=== PATIENT | male | born 1930 | race Caucasian/White ===

== ENCOUNTER 2017-11-11 20:19 | Emergency (ER) | payer MEDICARE, MEDICAID | END 2017-11-11 22:29 | disposition home or self-care (01) | LOC: M ED 20:19 | DX: S70.01XA Contusion of right hip, initial encounter (principal); W07.XXXA Fall from chair, initial encounter; Y92.129 Unspecified place in nursing home as the place of occurrence of the external cause; I10 Essential (primary) hypertension; K21.9 Gastro-esophageal reflux disease without esophagitis; E55.9 Vitamin D deficiency, unspecified; M19.90 Unspecified osteoarthritis, unspecified site; Z79.899 Other long term (current) drug therapy; Z79.82 Long term (current) use of aspirin; Z79.890 Hormone replacement therapy | CPT/HCPCS: 99284 ==

== ENCOUNTER 2017-11-13 12:28 | Emergency (ER) | payer MEDICARE, MEDICAID ==
[2017-11-13 13:53] LABS: BASO % 0.4 % (0.0-1.0); EOS # 0.4 10^3/uL (0.0-0.50); HEMATOCRIT 39.4 % (42.0-52.0); HEMOGLOBIN 13.4 g/dl (14.0-18.0); IMMATURE GRANULOCYTE % 0.4 % (0-0); LYMPH # 1.7 10^3/uL (1.5-4.5); LYMPH % 21.5 % (24.0-44.0); MEAN CORPUSCULAR HEMOGLOBIN 32.5 pg (27.0-33.0); MEAN CORPUSCULAR VOLUME 95.6 fl (80.0-96.0); MONO # 1.2 10^3/uL (0.0-0.8); MONO % 14.6 % (0.0-5.0); NEUTROPHILS # 4.7 10^3/uL (1.8-7.7); NEUTROPHILS % 58.1 % (36.0-66.0); PLATELET COUNT, AUTOMATED 164 10^3/uL (150-450); RED BLOOD COUNT 4.12 10^6/uL (4.30-6.10); RED CELL DISTRIBUTION WIDTH 14.2 % (11.5-14.5)
[2017-11-13 14:00] LABS: KETONE, URINE AUTO RFX NEGATIVE (NEGATIVE); LEUKOCYTE ESTERASE UR AUTO RFX NEGATIVE (NEGATIVE); MUCUS, URINE RFX SMALL (NEGATIVE); NITRITE, URINE AUTO RFX NEGATIVE (NEGATIVE); RBC, URINE AUTO RFX 0 /HPF (0-3); SPECIFIC GRAVITY UR AUTO RFX 1.018 (1.002-1.035); SQUAM EPITHELIAL CELL UR AURFX 1 /HPF (0-6); WBC, URINE AUTO RFX 2 /HPF (0-3)
[2017-11-13 14:19] LABS: LACTIC ACID SEPSIS PROTOCOL 1.8 MMOL/L (0.4-2.0)
[2017-11-13 14:21] LABS: ALBUMIN 3.5 GM/DL (3.2-5.2); ALKALINE PHOSPHATASE 159 U/L (45-117); ALT/SGPT 24 U/L (12-78); ANION GAP 7 MEQ/L (8-16); AST/SGOT 19 U/L (7-37); BILIRUBIN,DIRECT 0.1 MG/DL (0.0-0.2); BILIRUBIN,TOTAL 0.4 MG/DL (0.2-1.0); BLOOD UREA NITROGEN 12 MG/DL (7-18); CALCIUM LEVEL 8.3 MG/DL (8.8-10.2); CARBON DIOXIDE LEVEL 30 MEQ/L (21-32); CHLORIDE LEVEL 105 MEQ/L (98-107); CK-MB VALUE MASS 2.1 NG/ML (0.0-3.6); CPK CREATINE PHOSPHOKINASE 72 U/L (39-308); CREATININE FOR GFR 1.04 MG/DL (0.70-1.30); GLOMERULAR FILTRATION RATE > 60.0 (>35); GLUCOSE, FASTING 101 MG/DL (70-100); LIPASE 99 U/L (73-393); MB/CK RELATIVE INDEX 2.91 (< OR =4); POTASSIUM SERUM 3.6 MEQ/L (3.5-5.1); SODIUM LEVEL 142 MEQ/L (136-145); TOTAL PROTEIN 7.4 GM/DL (6.4-8.2); TROPONIN I < 0.02 NG/ML (< 0.10)
== END 2017-11-13 15:14 | disposition home or self-care (01) ==
LOC: M ED 12:28
DX: K29.50 Unspecified chronic gastritis without bleeding (principal); I44.7 Left bundle-branch block, unspecified; I10 Essential (primary) hypertension; E03.9 Hypothyroidism, unspecified; K21.9 Gastro-esophageal reflux disease without esophagitis; G47.30 Sleep apnea, unspecified; F03.90 Unspecified dementia, unspecified severity, without behavioral disturbance, psychotic disturbance, mood disturbance, and anxiety; Z79.899 Other long term (current) drug therapy; Z98.2 Presence of cerebrospinal fluid drainage device; Z79.890 Hormone replacement therapy
CPT/HCPCS: 74021

== ENCOUNTER → 2017-11-29 | Outpatient (CLI) | payer MEDICARE, MEDICAID ==
[~2017-11-29] MED LIST: GASTROGRAFIN SOLUTION 30ML (Q9963) As Ordered; ISOVUE-370 76% 100ML VIAL (Q9967) As Ordered
== END ==
LOC: M RAD 13:10
DX: I71.4 Abdominal aortic aneurysm, without rupture (principal); K57.90 Diverticulosis of intestine, part unspecified, without perforation or abscess without bleeding; R93.3 Abnormal findings on diagnostic imaging of other parts of digestive tract
CPT/HCPCS: Q9963

== ENCOUNTER 2017-12-18 20:05 | Emergency (ER) | payer MEDICARE, MEDICAID ==
[2017-12-18] MEDS: NS 500 ML IV (21:00)
[2017-12-18 21:30] LABS: BASO % 0.1 % (0.0-1.0); HEMATOCRIT 40.8 % (42.0-52.0); IMMATURE GRANULOCYTE % 0.6 % (0-3.0); LYMPH # 0.4 10^3/uL (1.5-4.5); LYMPH % 2.6 % (24.0-44.0); MEAN CORPUSCULAR HEMOGLOBIN 32.6 pg (27.0-33.0); MEAN CORPUSCULAR HGB CONC 34.3 g/dl (32.0-36.5); MEAN CORPUSCULAR VOLUME 94.9 fl (80.0-96.0); MONO # 1.9 10^3/uL (0.0-0.8); MONO % 11.6 % (0.0-5.0); NEUTROPHILS # 13.9 10^3/uL (1.8-7.7); NEUTROPHILS % 85.1 % (36.0-66.0); PLATELET COUNT, AUTOMATED 142 10^3/uL (150-450); RED CELL DISTRIBUTION WIDTH 14.5 % (11.5-14.5); WHITE BLOOD COUNT 16.3 10^3/uL (4.0-10.0)
[2017-12-18 21:54] LABS: ALBUMIN 3.4 GM/DL (3.2-5.2); ALBUMIN/GLOBULIN RATIO 0.87 (1.00-1.93); ALKALINE PHOSPHATASE 117 U/L (45-117); ALT/SGPT 23 U/L (12-78); ANION GAP 11 MEQ/L (8-16); AST/SGOT 24 U/L (7-37); BILIRUBIN,DIRECT 0.2 MG/DL (0.0-0.2); BILIRUBIN,TOTAL 0.5 MG/DL (0.2-1.0); BLOOD UREA NITROGEN 22 MG/DL (7-18); CARBON DIOXIDE LEVEL 24 MEQ/L (21-32); CHLORIDE LEVEL 105 MEQ/L (98-107); CPK CREATINE PHOSPHOKINASE 199 U/L (39-308); GLOMERULAR FILTRATION RATE 55.6 (>35); GLUCOSE, FASTING 157 MG/DL (70-100); LIPASE 67 U/L (73-393); SODIUM LEVEL 140 MEQ/L (136-145); TOTAL PROTEIN 7.3 GM/DL (6.4-8.2); TROPONIN I 0.04 NG/ML (< 0.10)
[2017-12-18 21:55] LABS: CK-MB VALUE MASS 2.4 NG/ML (0.0-3.6)
[2017-12-18] MEDS: POTASSIUM CHLORIDE 10 MEQ SR TABLET PO (22:15)
[2017-12-18] MEDS: GASTROGRAFIN SOLUTION 30ML PO ×2 (22:45→23:15)
[2017-12-18] MEDS ORDERED: ISOVUE-370 76% 100ML VIAL (Q9967) As Ordered (23:59)
[2017-12-19 01:12] LABS: KETONE, URINE AUTO RFX TRACE mg/dL (NEGATIVE); LEUKOCYTE ESTERASE UR AUTO RFX NEGATIVE (NEGATIVE); MUCUS, URINE RFX SMALL (NEGATIVE); NITRITE, URINE AUTO RFX NEGATIVE (NEGATIVE); RBC, URINE AUTO RFX 0 /HPF (0-3); SPECIFIC GRAVITY UR AUTO RFX 1.029 (1.002-1.035); SQUAM EPITHELIAL CELL UR AURFX 0 /HPF (0-6); WBC, URINE AUTO RFX 1 /HPF (0-3)
[2017-12-19 01:21] LABS: LACTIC ACID SEPSIS PROTOCOL 2.6 MMOL/L (0.4-2.0)
== END 2017-12-19 03:49 | disposition home or self-care (01) ==
LOC: M ED 12-19 03:49
DX: R19.7 Diarrhea, unspecified (principal); R29.6 Repeated falls; I10 Essential (primary) hypertension; E78.5 Hyperlipidemia, unspecified; E07.9 Disorder of thyroid, unspecified; K21.9 Gastro-esophageal reflux disease without esophagitis; M19.90 Unspecified osteoarthritis, unspecified site; R13.10 Dysphagia, unspecified; F03.90 Unspecified dementia, unspecified severity, without behavioral disturbance, psychotic disturbance, mood disturbance, and anxiety; E53.8 Deficiency of other specified B group vitamins; Z79.899 Other long term (current) drug therapy; Z79.82 Long term (current) use of aspirin
CPT/HCPCS: Q9963

== ENCOUNTER → 2018-04-20 | Outpatient (REF) | payer MEDICARE, MEDICAID ==
[2018-04-20 15:14] LABS: APPEARANCE, URINE CLEAR (CLEAR); BACTERIA, URINE AUTO 1+ (NEGATIVE); BILIRUBIN, URINE AUTO NEGATIVE (NEGATIVE); BLOOD, URINE BLOOD NEGATIVE (NEGATIVE); COLOR, URINE YELLOW (YELLOW); GLUCOSE, URINE (UA) AUTO NEGATIVE (NEGATIVE); KETONE, URINE AUTO NEGATIVE (NEGATIVE); LEUKOCYTE ESTERASE, URINE AUTO NEGATIVE (NEGATIVE); MUCUS, URINE SMALL (NEGATIVE); NITRITE, URINE AUTO NEGATIVE (NEGATIVE); PROTEIN, URINE AUTO NEGATIVE (NEGATIVE); RBC, URINE AUTO 0 /HPF (0-3); SPECIFIC GRAVITY URINE AUTO 1.017 (1.002-1.035); SQUAMOUS EPITHELIAL CELL UR AU 0 /HPF (0-6); UROBILINOGEN, URINE AUTO 0.2 mg/dL (0.0-2.0); WBC, URINE AUTO 1 /HPF (0-3)
== END ==
LOC: M LAB 15:03
DX: R41.82 Altered mental status, unspecified (principal)
CPT/HCPCS: 81001

== ENCOUNTER 2018-11-13 10:35 | Inpatient (IN) | payer MEDICARE ==
[~2018-11-13] VITALS: Ht 165.1 cm; Wt 79.1 kg
[~2018-11-13 10:35] MED LIST changes: +ALUMSUS2 PO; +ASPI81TA24 PO; +COLA100C5 PO; +FAMO40TA3 PO; +FOLI1TAB11 PO; -GASTROGRAFIN SOLUTION 30ML (Q9963) As Ordered; +GUAI100S29 PO; +HYDR25TAB PO; -ISOVUE-370 76% 100ML VIAL (Q9967) As Ordered; +KLOR10TA76 PO; +LEVO75TA34 PO; +MILK120011 PO; +MIRA33504 PO; +PEPT262S PO; +PROT1TAB2 PO; +SENN1TAB10 PO; +SUCR1TAB56 PO; +TYLE325T5 PO; +VITA2000 PO; +VITA200015 PO
[2018-11-13 12:09] LABS: BASO # 0.1 10^3/uL (0.0-0.2); BASO % 0.3 % (0.0-1.0); HEMATOCRIT 41.1 % (42.0-52.0); HEMOGLOBIN 14.1 g/dl (13.5-17.5); LYMPH # 0.9 10^3/uL (1.5-4.5); LYMPH % 3.5 % (24.0-44.0); MEAN CORPUSCULAR HEMOGLOBIN 33.1 pg (27.0-33.0); MEAN CORPUSCULAR HGB CONC 34.3 g/dl (32.0-36.5); MEAN CORPUSCULAR VOLUME 96.5 fl (80.0-96.0); MONO % 8.5 % (0.0-5.0); NEUTROPHILS # 22.2 10^3/uL (1.8-7.7); NEUTROPHILS % 86.6 % (36.0-66.0); PLATELET COUNT, AUTOMATED 165 10^3/uL (150-450); RED BLOOD COUNT 4.26 10^6/uL (4.30-6.10); WHITE BLOOD COUNT 25.7 10^3/uL (4.0-10.0)
[2018-11-13 12:17] LABS: ALBUMIN 3.3 GM/DL (3.2-5.2); BILIRUBIN,DIRECT 0.2 MG/DL (0.0-0.2); BILIRUBIN,TOTAL 0.7 MG/DL (0.2-1.0); CALCIUM LEVEL 8.7 MG/DL (8.8-10.2); CREATININE FOR GFR 1.39 MG/DL (0.70-1.30); GLOMERULAR FILTRATION RATE 51.3 (>35); POTASSIUM SERUM 3.4 MEQ/L (3.5-5.1)
[2018-11-13 12:57] LABS: MONO # 2.2 10^3/uL (0.0-0.8)
[2018-11-13] MEDS: GASTROGRAFIN SOLUTION 30ML PO SCH ×2 (13:00→13:28)
[2018-11-13] MEDS ORDERED: ISOVUE-370 76% 100ML VIAL (Q9967) As Ordered ONE (13:38)
--- NOTE | 2018-11-13 15:19 | REP ---
CT abdomen and pelvis with IV and oral contrast: History: Periumbilical hernia. Rule out strangulation. Comparison CT study December 19, 2017. CT contrast dose: 100 ml of intravenous Isovue 370. CT findings: Preliminary digital site coordinator radiograph demonstrates an unremarkable bowel gas pattern. There is an infiltrate in the right lower lobe and a few patchy increased markings are seen at the top of the imaging field of view in the right middle lobe. This represents a change from the comparison CT study and is compatible with right lower lobe pneumonia. There is discoid atelectasis in the left lower lobe. No pleural effusion is seen. There is a tiny cyst in the left lobe of the liver. which is unchanged. A small sliding-type hiatal hernia is seen. Normal adrenal glands are noted bilaterally. No splenic or significant focal liver lesion is seen. There is no abnormality in the gallbladder. Pancreas is unremarkable. The kidneys enhance symmetrically and are morphologically intact. There is an infrarenal abdominal aortic aneurysm measuring 3.3 cm in greatest diameter. There is marked left colonic diverticulosis. There is no CT evidence of diverticulitis. There are bilateral inguinal hernias transmitting abdominal fat, left larger than right. There is a ventral hernia in the periumbilical anterior abdominal wall transmitting abdominal fat as well. There are several small defects involved with this hernia. There is no evidence of inflammation to suggest strangulation. No bowel involvement is seen. The hernia is essentially unchanged from December 19, 2017. Prostate, seminal vesicles and urinary bladder are unremarkable. Impression: 1. Right lower lobe infiltrate consistent with pneumonia. 2. Stable ventral and bilateral inguinal hernias transmitting abdominal fat. 3. Advanced left colonic diverticulosis without CT evidence of diverticulitis. 4. 3.3 cm infrarenal abdominal aortic aneurysm, unchanged. 5. Small sliding hiatal hernia. Electronically Signed by Ashok Espino MD 11/13/2018 10:28 P
[2018-11-13] MEDS ORDERED: cefTRIAXone SOD 2 GM in D5W MINI-BAG PLUS 50 ML IV ONE (15:30)
[2018-11-13] MEDS ORDERED: AZITHROMYCIN INJ 500 MG, VIAL MATE ADAPTER 1 EACH in D5W 250 ML IV ONE (15:30)
--- NOTE | 2018-11-13 15:48 | REP ---
Chest one-view HISTORY: Right lower lobe pneumonia Comparison: None Patchy density is present in the right lower lobe consistent with an infiltrate. The left lung is clear. The heart is normal in size. The pulmonary vasculature is normal in appearance. Impression: Right lower lobe infiltrate. Electronically Signed by Zach Marcos MD 11/13/2018 03:40 P
[2018-11-13] MEDS ORDERED: SIME80TA PO (16:42)
[2018-11-13] MEDS ORDERED: ONDANSETRON 4 MG TAB (S0181) PO PRN (19:30)
[2018-11-13] MEDS ORDERED: BISACODYL 5 MG TAB PO PRN (19:30)
[2018-11-13] MEDS ORDERED: PERCOCET 5MG/325MG TAB PO PRN ×2 (19:30)
[2018-11-13] MEDS: SENOKOT S TAB PO SCH (21:00)
[2018-11-13] MEDS ORDERED: MOM 30ML SUSPENSION UDC PO PRN (21:45)
[2018-11-13] MEDS ORDERED: SIMETHICONE 80 MG CHEW TAB PO PRN (21:45)
--- NOTE | 2018-11-13 21:50 | HPEPDOC ---
[facility] Medical History & Physical Date of Admission Nov 13, 2018 History and Physical CHIEF COMPLAINT: [sob and AMS ] HISTORY OF PRESENT ILLNESS: This is an 88 yo male with no significant pmhx per sister at bedside. Patient was very uncooperative , cursing everyone and saying he was going to leave because nothing was wrong with him. He did not give any hx. Limited hx was taken from his sister at bedside. Per sister he was sent in from [facility] for weakness, difficulty ambulating and low grade fever 99.6. He is slower than usual and there was concern that something was wrong so he was sent in for evaluation. Patient also has been having runny nose , cold symptoms. REVIEW OF SYSTEMS: All 14 points ROS is negative except what's stated in HPI PHYSICAL EXAMINATION: GEN: no acute distress HEENT : no lymphadenopathy, PERRLA , no oropharyngeal erythema or exudates CVS: Normal S1/s2, no murmurs, rubs or gallops, RESP: b/l wheezes, but no crackles, or rhonchi Abd: soft, nontender, nondistended, + BS MSK: refused to move his extremtiies and forcefully kept them in one position, but per family, he usually moves them all without any difficulty Integumentary: no rash or bruises Neuro: no focal deficit psych: uncooperative PAST SURGICAL HISTORY: none PMHX none SOCIAL HISTORY: Resides in: [[facility]] Tobacco use:[n] ETOH: [n] Illicit drug use: n Tattoos done unprofessionally: [n]. IV drug use: [n] FAMILY HISTORY: multiple siblings with malignancy - family unsure of the type ALLERGIES: Please see below. HOME MEDICATIONS: Please see below. LABORATORY DATA: See below. IMAGING: [ cxr - Impression: Right lower lobe infiltrate. CT abd and pelvis 1. Right lower lobe infiltrate consistent with pneumonia. 2. Stable ventral and bilateral inguinal hernias transmitting abdominal fat. 3. Advanced left colonic diverticulosis without CT evidence of diverticulitis. 4. 3.3 cm infrarenal abdominal aortic aneurysm, unchanged. 5. Small sliding hiatal hernia. MICROBIOLOGY: Please see below. ASSESSMENT: RLL PNA PLAN: ceftriaxone and azithromycin f/u resp panel f/ui sputum gs and cx f/u bacterial ag steroid 40mg niv q8h duonebs q4h resume home meds dvt ppx DNR/DNI Vital Signs Vital Signs Date Time Temp Pulse Resp B/P (MAP) Pulse Ox O2 Delivery O2 Flow Rate FiO2 11/13/18 20:00 97.8 78 22 142/73 (96) 94 Nasal Cannula 2.0 Laboratory Data Labs 24H Laboratory Tests 2 11/13/18 11:06: Immature Granulocyte % (Auto) 1.1, White Blood Count 25.7H, Red Blood Count 4.26L, Hemoglobin 14.1, Hematocrit 41.1L, Mean Corpuscular Volume 96.5H, Mean Corpuscular Hemoglobin 33.1H, Mean Corpuscular Hemoglobin Concent 34.3, Red Cell Distribution Width 14.6H, Platelet Count 165, Neutrophils (%) (Auto) 86.6H, Lymphocytes (%) (Auto) 3.5L, Monocytes (%) (Auto) 8.5H, Eosinophils (%) (Auto) 0.0, Basophils (%) (Auto) 0.3, Neutrophils # (Auto) 22.2H, Lymphocytes # (Auto) 0.9L, Monocytes # (Auto) 2.2H, Eosinophils # (Auto) 0.0, Basophils # (Auto) 0.1, Nucleated Red Blood Cells % (auto) 0.0, Anion Gap 8, Glomerular Filtration Rate 51.3, Lactic Acid Level 3.2*H, Calcium Level 8.7L, Aspartate Amino Transf (AST/SGOT) 15, Alanine Aminotransferase (ALT/SGPT) 21, Alkaline Phosphatase 116, Total Bilirubin 0.7, Direct Bilirubin 0.2, Total Protein 7.0, Albumin 3.3, Albumin/Globulin Ratio 0.89L, Lipase 63L 11/13/18 17:41: Lactic Acid Followup at 4 Hours 2.4*H CBC/BMP Laboratory Tests 11/13/18 11:06 Red Blood Count 4.26 L, Mean Corpuscular Volume 96.5 H, Mean Corpuscular Hemoglobin 33.1 H, Mean Corpuscular Hemoglobin Concent 34.3, Red Cell Distribution Width 14.6 H, Neutrophils (%) (Auto) 86.6 H, Lymphocytes (%) (Auto) 3.5 L, Monocytes (%) (Auto) 8.5 H, Eosinophils (%) (Auto) 0.0, Basophils (%) (Auto) 0.3, Neutrophils # (Auto) 22.2 H, Lymphocytes # (Auto) 0.9 L, Monocytes # (Auto) 2.2 H, Eosinophils # (Auto) 0.0, Basophils # (Auto) 0.1 Home Medications Scheduled Acetaminophen (Tylenol) 325 Mg Tab, 325 MG PO BID Aspirin (Aspirin EC) 81 Mg Tab, 81 MG PO DAILY Cholecalciferol (Vitamin D3) 2,000 Unit Cap, 2,000 UNIT PO DAILY Docusate Sodium (Colace) 100 Mg Cap, 100 MG PO BID Famotidine (Famotidine) 40 Mg Tab, 40 MG PO QHS Folic Acid (Folic Acid) 1 Mg Tab, 1 MG PO DAILY Hydrochlorothiazide (Hydrochlorothiazide) 25 Mg Tab, 25 MG PO DAILY Levothyroxine Sodium (Levoxyl) 75 Mcg Tab, 75 MCG PO DAILY Pantoprazole Sodium Sesquihydr (Protonix) 40 Mg Tab, 40 MG PO BID TAKES AT 1100 & 1600 Potassium Chloride (Klor-Con M10) 10 Meq Tabcr, 10 MEQ PO DAILY Senna (Senna Lax) 8.6 Mg Tab, 2 TAB PO QHS Sucralfate (Sucralfate) 1 Gm Tab, 1 GM PO QID Scheduled PRN (Aluminum/Magnesium/Simeth 200-200-20 mg/5Ml) 1 Rosa Rosa, 30 ML PO Q4H PRN for INDIGESTION Acetaminophen (Tylenol) 325 Mg Tab, 325 MG PO DAILY PRN for PAIN Bismuth Subsalicylate (Pepto-Bismol) 262 Mg/15 Ml Rosa, 30 ML PO Q4H PRN for INDIGESTION Guaifenesin/Dextromethorphan (Guaifenesin/Dextromethorp 100-10 mg/5Ml) 1 Syp Syp, 5 ML PO QID PRN for COUGH Milk Of Magnesia (Milk of Magnesia) 1,200 Mg/15 Ml Rosa, 30 ML PO Q4H PRN for C ONSTIPATION Polyethylene Glycol (Miralax) 1 Pow Pow, 17 GM PO DAILY PRN for CONSTIPATION Simethicone (Simethicone) 80 Mg Chew, 80 MG PO Q6H PRN for GAS PAIN Allergies Coded Allergies: No Known Allergies (Unverified , 11/13/17) CHIARA PEREZ MD Nov 13, 2018 21:50
[2018-11-13] MEDS: SENNA 8.6 MG TAB (SENOKOT) PO SCH (22:09)
[2018-11-13] MEDS: ACETAMINOPHEN TAB 650MG DOSE (2X325MG) PO PRN (22:09)
[2018-11-13] MEDS: guaiFENesin DM LIQ 10ML UD PO PRN (22:09)
[2018-11-13] MEDS: HEPARIN SOD (PORCINE) 5000 UNITS/ML VIAL SC SCH (22:10)
[2018-11-13] MEDS: methylPREDNISolone INJ 40 MG/1 ML VIAL (J2920) IV SCH (22:10)
[2018-11-14] MEDS: IPRATROPIUM 0.5MG/ALBUTEROL 2.5MG INH SOL UD 3ML (DUONEB)(J7620) NEB SCH ×7 (04:00→23:30)
[2018-11-14] MEDS: LEVOTHYROXINE 75MCG TABLET (0.075MG) PO SCH (06:10)
[2018-11-14] MEDS: methylPREDNISolone INJ 40 MG/1 ML VIAL (J2920) IV SCH ×3 (06:10→19:52)
[2018-11-14] MEDS: HEPARIN SOD (PORCINE) 5000 UNITS/ML VIAL SC SCH ×3 (06:10→19:52)
[2018-11-14 07:57] LABS: BASO % 0.2 % (0.0-1.0); HEMATOCRIT 39.6 % (42.0-52.0); HEMOGLOBIN 13.6 g/dl (13.5-17.5); LYMPH # 0.9 10^3/uL (1.5-4.5); LYMPH % 5.7 % (24.0-44.0); MEAN CORPUSCULAR HGB CONC 34.3 g/dl (32.0-36.5); MEAN CORPUSCULAR VOLUME 96.1 fl (80.0-96.0); MONO # 0.2 10^3/uL (0.0-0.8); MONO % 1.5 % (0.0-5.0); NEUTROPHILS # 14.6 10^3/uL (1.8-7.7); NEUTROPHILS % 91.8 % (36.0-66.0); PLATELET COUNT, AUTOMATED 154 10^3/uL (150-450); RED BLOOD COUNT 4.12 10^6/uL (4.30-6.10); WHITE BLOOD COUNT 15.9 10^3/uL (4.0-10.0)
[2018-11-14 08:29] LABS: BLOOD UREA NITROGEN 14 MG/DL (7-18); CALCIUM LEVEL 8.9 MG/DL (8.8-10.2); CARBON DIOXIDE LEVEL 28 MEQ/L (21-32); CHLORIDE LEVEL 101 MEQ/L (98-107); GLOMERULAR FILTRATION RATE > 60.0 (>35); GLUCOSE, FASTING 206 MG/DL (70-100); MAGNESIUM LEVEL 1.8 MG/DL (1.8-2.4); POTASSIUM SERUM 3.7 MEQ/L (3.5-5.1); SODIUM LEVEL 137 MEQ/L (136-145)
[2018-11-14 08:30] VITALS: BP 128/75
[2018-11-14] MEDS ORDERED: PANTOPRAZOLE 40MG TAB (PROTONIX) PO SCH (09:00)
[2018-11-14] MEDS: FOLIC ACID 1 MG TAB PO SCH (10:05)
[2018-11-14] MEDS: SENOKOT S TAB PO SCH ×2 (10:05→19:53)
[2018-11-14] MEDS: hydroCHLOROthiazide 25 MG TAB PO SCH (10:05)
[2018-11-14] MEDS: ASPIRIN 81 MG ENTERIC TAB PO SCH (10:05)
--- NOTE | 2018-11-14 13:15 | ECGEPIP ---
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
[2018-11-14 14:09] VITALS: BP 114/57
[2018-11-14 15:00] VITALS: BP 114/75
--- NOTE | 2018-11-14 15:50 | IPN ---
DATE: 11/14/2018 SUBJECTIVE: The patient tells me that he feels great and he wants to home. He denies any pain what so ever. He is obsessed with leaving the hospital. OBJECTIVE: VITAL SIGNS: Blood pressure 120/75, oxygen saturation 93% on 2 liters. GENERAL: He is a pleasant, elderly man laying on his left side. He appears quite comfortable in no acute distress. Speaking in complete sentences without accessory muscle use. CARDIOVASCULAR EXAM: S1, S2 regular. RESPIRATORY EXAM: Actually fairly clear. ABDOMINAL EXAM: Obese. EXTREMITIES: No clubbing, cyanosis or edema. LABORATORY STUDIES: WBC 15.9 down from 25.7, hemoglobin 13.6, platelet count 154. Chemistry panel: Sodium 137, potassium 3.7, chloride 101, bicarbonate 28, BUN 14, creatinine 1.2, lactic acid 1.7, magnesium 1.8, lipase within normal limits. 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 He subsequently had a chest x-ray and that also revealed right lower lobe infiltrate. ASSESSMENT AND PLAN: This is an 88-year-old man from assisted living with right lower lobe pneumonia. PROBLEMS: 1. Community acquired pneumonia. I started the patient on Ceftriaxone and Azithromycin this morning after he received one time dose in the emergency room, he does appear to be improving and we will continue to monitor him closely. He is also on IV steroids. I do not see a past medical history of COPD. It is not immediately clear to me why he is on these, however he does appear to be improving for now. We will continue to monitor him closely. We will continue paris on Lillian Weldon. The patient is very eager to go back to assisted living facility. I think he would benefit from a physical therapy evaluation. I also think that he would benefit from having his oxygen titrated down. 2. Abdominal aortic aneurysm, stable and unchanged. Continue outpatient followup with his primary care provider. 3. Gastroesophageal reflux disease. Continue with Pepcid and Protonix. 4. Hypertension. Continue with hydrochlorothiazide. 5. Hypothyroidism. Continue with Levothyroxine. 6. Chronic constipation. Continue with his home bowel regimen. 7. DVT prophylaxis. Patient is heparin.
[2018-11-14] MEDS: PANTOPRAZOLE 40MG TAB (PROTONIX) PO SCH (16:59)
[2018-11-14] MEDS: AZITHROMYCIN INJ 500 MG, VIAL MATE ADAPTER 1 EACH in D5W 250 ML IV SCH (16:59)
[2018-11-14] MEDS: cefTRIAXone SOD 1 GM in D5W MINI-BAG PLUS 50 ML IV SCH (18:10)
[2018-11-14] MEDS: guaiFENesin DM LIQ 10ML UD PO PRN (19:52)
[2018-11-14] MEDS: SENNA 8.6 MG TAB (SENOKOT) PO SCH (19:53)
[2018-11-14] MEDS: ACETAMINOPHEN TAB 650MG DOSE (2X325MG) PO PRN (19:53)
[2018-11-14] MEDS: FAMOTIDINE 20 MG TAB PO SCH (19:53)
[2018-11-14 22:00] VITALS: BP 117/75
[2018-11-15] MEDS: IPRATROPIUM 0.5MG/ALBUTEROL 2.5MG INH SOL UD 3ML (DUONEB)(J7620) NEB SCH ×5 (04:09→20:12)
[2018-11-15] MEDS: methylPREDNISolone INJ 40 MG/1 ML VIAL (J2920) IV SCH (05:30)
[2018-11-15] MEDS: HEPARIN SOD (PORCINE) 5000 UNITS/ML VIAL SC SCH ×3 (05:30→22:11)
[2018-11-15] MEDS: LEVOTHYROXINE 75MCG TABLET (0.075MG) PO SCH (05:30)
[2018-11-15 06:00] VITALS: BP 117/62
[2018-11-15 06:43] LABS: BASO % 0.1 % (0.0-1.0); HEMATOCRIT 37.5 % (42.0-52.0); HEMOGLOBIN 12.9 g/dl (13.5-17.5); LYMPH # 0.7 10^3/uL (1.5-4.5); LYMPH % 2.9 % (24.0-44.0); MEAN CORPUSCULAR HEMOGLOBIN 32.7 pg (27.0-33.0); MEAN CORPUSCULAR HGB CONC 34.4 g/dl (32.0-36.5); MEAN CORPUSCULAR VOLUME 94.9 fl (80.0-96.0); MONO # 1.6 10^3/uL (0.0-0.8); MONO % 6.7 % (0.0-5.0); NEUTROPHILS # 21.5 10^3/uL (1.8-7.7); NEUTROPHILS % 88.5 % (36.0-66.0); PLATELET COUNT, AUTOMATED 182 10^3/uL (150-450); RED BLOOD COUNT 3.95 10^6/uL (4.30-6.10); WHITE BLOOD COUNT 24.3 10^3/uL (4.0-10.0)
[2018-11-15 07:05] LABS: CALCIUM LEVEL 9.1 MG/DL (8.8-10.2); CREATININE FOR GFR 1.57 MG/DL (0.70-1.30); GLOMERULAR FILTRATION RATE 44.6 (>35); MAGNESIUM LEVEL 1.7 MG/DL (1.8-2.4); POTASSIUM SERUM 2.8 MEQ/L (3.5-5.1)
[2018-11-15] MEDS ORDERED: MAG SULF 1GM/100ML (MAG RUN) 1 GM in APPROPRIATE DILUENT 1 EA IV ONE (08:00)
[2018-11-15] MEDS: FOLIC ACID 1 MG TAB PO SCH (09:11)
[2018-11-15] MEDS: SENOKOT S TAB PO SCH ×2 (09:11→22:11)
[2018-11-15] MEDS: ASPIRIN 81 MG ENTERIC TAB PO SCH (09:12)
[2018-11-15] MEDS: hydroCHLOROthiazide 25 MG TAB PO SCH (09:12)
[2018-11-15] MEDS: POTASSIUM CHLORIDE 10 MEQ SR TABLET PO SCH ×3 (09:12→22:11)
[2018-11-15] MEDS: PANTOPRAZOLE 40MG TAB (PROTONIX) PO SCH ×2 (11:21→17:26)
--- NOTE | 2018-11-15 12:17 | IPNPDOC ---
Text Note Date of Service The patient was seen on 11/15/18. NOTE SUBJECTIVE: Patient was examined at bedside, he was discovered by family member. He states he feels great. He had no acute complaints. He had no overnight activities. He is on room air with appropriate O2 saturation OBJECTIVE: VITAL SIGNS: See below. GENERAL pleasant, elderly male, speaks in full sentences without shortness of breath, no signs of distress. CARDIOVASCULAR EXAM: S1, S2 normal, regular, no murmur RESPIRATORY EXAM clear to auscultate ABDOMINAL EXAM: Obese, soft, nondistended EXTREMITIES: No edema, no deformities.. ASSESSMENT AND PLAN: This is an 88-year-old man from assisted living with right lower lobe pneumonia. PROBLEMS: #Community acquired pneumonia. -Ceftriaxone and Azithromycin -IV Steriods, -Consider IV Steriod d/c , start regular zone 20 mg daily, plan to taper -PRN duonebs and Robitussin -No room air with appropriate O2 saturation -Continues to improve on regime. #Hypokalemic, replacement ordered, #Hypo-magnesium, replacement ordered #Abdominal aortic aneurysm, stable and unchanged. Continue outpatient followup with his primary care provider. #. Gastroesophageal reflux disease. Continue with Pepcid and Protonix. # Hypertension. Continue with hydrochlorothiazide. #Hypothyroidism. Continue with Levothyroxine. #Chronic constipation. Continue with his home bowel regimen. #DVT prophylaxis. Patient is heparin. VS,Fishbone, I+O VS, Fishbone, I+O Laboratory Tests 11/15/18 06:11 Red Blood Count 3.95 L, Mean Corpuscular Volume 94.9, Mean Corpuscular Hemoglobin 32.7, Mean Corpuscular Hemoglobin Concent 34.4, Red Cell Distribution Width 14.4, Neutrophils (%) (Auto) 88.5 H, Lymphocytes (%) (Auto) 2.9 L, Monocytes (%) (Auto) 6.7 H, Eosinophils (%) (Auto) 0.0, Basophils (%) (Auto) 0.1, Neutrophils # (Auto) 21.5 H, Lymphocytes # (Auto) 0.7 L, Monocytes # (Auto) 1.6 H, Eosinophils # (Auto) 0.0, Basophils # (Auto) 0.0, Calcium Level 9.1 Vital Signs Date Time Temp Pulse Resp B/P (MAP) Pulse Ox O2 Delivery O2 Flow Rate FiO2 11/15/18 06:00 98.6 83 17 117/62 (80) 93 11/14/18 08:30 2.0 11/14/18 03:59 Nasal Cannula I&O- Last 24 Hours up to 6 AM 11/15/18 06:00 Intake Total 1385 ml Output Total 0 ml Balance 1385 ml GME ATTESTATION GME ATTESTATION My faculty preceptor for this patient encounter was physically present during the encounter and was fully available. All aspects of the patient interview, examination, medical decision making process, and medical care plan development were reviewed and approved by the faculty preceptor. The faculty preceptor is aware and concurs with the plan as stated in the body of this note and will attest to such by his/her cosignature. CHARITO ANDERSON DO Nov 15, 2018 12:17
[2018-11-15 14:00] VITALS: BP 122/63
[2018-11-15] MEDS: AZITHROMYCIN INJ 500 MG, VIAL MATE ADAPTER 1 EACH in D5W 250 ML IV SCH ×2 (17:25→17:48)
[2018-11-15] MEDS: cefTRIAXone SOD 1 GM in D5W MINI-BAG PLUS 50 ML IV SCH (19:40)
[2018-11-15 22:00] VITALS: BP 142/86
[2018-11-15] MEDS: FAMOTIDINE 20 MG TAB PO SCH (22:11)
[2018-11-15] MEDS: SENNA 8.6 MG TAB (SENOKOT) PO SCH (22:11)
[2018-11-16] MEDS: ACETAMINOPHEN TAB 650MG DOSE (2X325MG) PO PRN (01:44)
[2018-11-16] MEDS: IPRATROPIUM 0.5MG/ALBUTEROL 2.5MG INH SOL UD 3ML (DUONEB)(J7620) NEB SCH ×7 (04:00→23:33)
[2018-11-16 06:00] VITALS: BP 150/86
[2018-11-16] MEDS: LEVOTHYROXINE 75MCG TABLET (0.075MG) PO SCH (06:21)
[2018-11-16] MEDS: HEPARIN SOD (PORCINE) 5000 UNITS/ML VIAL SC SCH ×3 (06:21→21:06)
[2018-11-16 06:58] LABS: BASO % 0.2 % (0.0-1.0); EOS % 0.2 % (0.0-3.0); HEMATOCRIT 38.8 % (42.0-52.0); HEMOGLOBIN 13.4 g/dl (13.5-17.5); LYMPH # 1.3 10^3/uL (1.5-4.5); LYMPH % 8.2 % (24.0-44.0); MEAN CORPUSCULAR HEMOGLOBIN 32.8 pg (27.0-33.0); MEAN CORPUSCULAR HGB CONC 34.5 g/dl (32.0-36.5); MEAN CORPUSCULAR VOLUME 94.9 fl (80.0-96.0); MONO # 1.5 10^3/uL (0.0-0.8); MONO % 9.1 % (0.0-5.0); NEUTROPHILS # 13.1 10^3/uL (1.8-7.7); NEUTROPHILS % 81.5 % (36.0-66.0); PLATELET COUNT, AUTOMATED 195 10^3/uL (150-450); RED BLOOD COUNT 4.09 10^6/uL (4.30-6.10); WHITE BLOOD COUNT 16.1 10^3/uL (4.0-10.0)
[2018-11-16 07:21] LABS: CALCIUM LEVEL 9.3 MG/DL (8.8-10.2); CREATININE FOR GFR 1.46 MG/DL (0.70-1.30); GLOMERULAR FILTRATION RATE 48.5 (>35); MAGNESIUM LEVEL 2.2 MG/DL (1.8-2.4); POTASSIUM SERUM 3.6 MEQ/L (3.5-5.1)
[2018-11-16] MEDS ORDERED: AZITHROMYCIN 250 MG TAB PO SCH (09:00)
[2018-11-16] MEDS: hydroCHLOROthiazide 25 MG TAB PO SCH (09:53)
[2018-11-16] MEDS: CEFDINIR 300 MG CAP (OMNICEF) PO SCH ×2 (09:53→21:05)
[2018-11-16] MEDS: FOLIC ACID 1 MG TAB PO SCH (09:53)
[2018-11-16] MEDS: predniSONE 20 MG TAB PO SCH (09:53)
[2018-11-16] MEDS: ASPIRIN 81 MG ENTERIC TAB PO SCH (09:53)
[2018-11-16] MEDS: SENOKOT S TAB PO SCH ×2 (09:53→21:05)
[2018-11-16] MEDS: PANTOPRAZOLE 40MG TAB (PROTONIX) PO SCH ×2 (09:54→16:26)
--- NOTE | 2018-11-16 11:51 | IPNPDOC ---
Date Seen The patient was seen on 11/16/18. Progress Note SUBJECTIVE: Patient tells me that he feels well he has no specific complaints at this time he denies cough fevers chills or shortness of breath OBJECTIVE: VITAL SIGNS: See below. GENERAL pleasant, elderly male, speaks in full sentences without shortness of breath, Lying comfortably in bed no acute distress CARDIOVASCULAR EXAM: S1, S2 normal, regular, no murmur RESPIRATORY EXAM clear to auscultate ABDOMINAL EXAM: Obese, soft, nondistended EXTREMITIES: 1+ edema, no deformities. ASSESSMENT AND PLAN: This is an 88-year-old man from assisted living with right lower lobe pneumonia. PROBLEMS: #Community acquired pneumonia. -Cefdinir and Azithromycin he is now afebrile appears to be resolving -He was started on IV steroids we'll quickly taper them do not see any definite history of COPD clinically N don't appreciate it on his exam -PRN duonebs and Robitussin #Hypokalemic, resolved with repletion #Hypo-magnesium, resolved with repletion #Abdominal aortic aneurysm, stable and unchanged. Continue outpatient followup with his primary care provider. #. Gastroesophageal reflux disease. Continue with Pepcid and Protonix. # Hypertension. Continue with hydrochlorothiazide. #Hypothyroidism. Continue with Levothyroxine. #Chronic constipation. Continue with his home bowel regimen. #Peripheral edema we'll provide the patient one-time dose of 20 of IV Lasix #Dementia. The patient appears to be confused at times has difficulty following commands and is quite argumentative far from his baseline as per my conversations with his grandniece #DVT prophylaxis. Patient is on heparin. Disposition likely home to assisted living facility tomorrow pending PT clearance VS, I&O, 24H, Fishbone Vital Signs/I&O Vital Signs Date Time Temp Pulse Resp B/P (MAP) Pulse Ox O2 Delivery O2 Flow Rate FiO2 11/16/18 06:00 97.1 73 18 150/86 (107) 93 11/14/18 08:30 2.0 11/14/18 03:59 Nasal Cannula I&O- Last 24 Hours up to 6 AM 11/16/18 06:00 Intake Total 1700 ml Output Total 0 ml Balance 1700 ml Laboratory Data 24H LABS Laboratory Tests 2 11/16/18 06:22: Immature Granulocyte % (Auto) 0.8, White Blood Count 16.1H, Red Blood Count 4.09L, Hemoglobin 13.4L, Hematocrit 38.8L, Mean Corpuscular Volume 94.9, Mean C orpuscular Hemoglobin 32.8, Mean Corpuscular Hemoglobin Concent 34.5, Red Cell Distribution Width 14.6H, Platelet Count 195, Neutrophils (%) (Auto) 81.5H, Lymphocytes (%) (Auto) 8.2L, Monocytes (%) (Auto) 9.1H, Eosinophils (%) (Auto) 0.2, Basophils (%) (Auto) 0.2, Neutrophils # (Auto) 13.1H, Lymphocytes # (Auto) 1.3L, Monocytes # (Auto) 1.5H, Eosinophils # (Auto) 0.0, Basophils # (Auto) 0.0, Nucleated Red Blood Cells % (auto) 0.0, Anion Gap 9, Glomerular Filtration Rate 48.5, Blood Urea Nitrogen 20H, Creatinine 1.46H, Sodium Level 138, Potassium Level 3.6#, Chloride Level 104, Carbon Dioxide Level 25, Calcium Level 9.3, Magnesium Level 2.2 CBC/BMP Laboratory Tests 11/16/18 06:22 Red Blood Count 4.09 L, Mean Corpuscular Volume 94.9, Mean Corpuscular Hemoglobin 32.8, Mean Corpuscular Hemoglobin Concent 34.5, Red Cell Distribution Width 14.6 H, Neutrophils (%) (Auto) 81.5 H, Lymphocytes (%) (Auto) 8.2 L, Monocytes (%) (Auto) 9.1 H, Eosinophils (%) (Auto) 0.2, Basophils (%) (Auto) 0.2, Neutrophils # (Auto) 13.1 H, Lymphocytes # (Auto) 1.3 L, Monocytes # (Auto) 1.5 H, Eosinophils # (Auto) 0.0, Basophils # (Auto) 0.0, Calcium Level 9.3 MOLLY RILEY MD Nov 16, 2018 11:50
[2018-11-16] MEDS ORDERED: FUROSEMIDE 20 MG/2 ML VIAL (J1940) IV ONE (12:00)
[2018-11-16] MEDS ORDERED: FUROSEMIDE 40 MG TAB PO ONE (13:00)
[2018-11-16 14:00] VITALS: BP 133/89
[2018-11-16] MEDS: FAMOTIDINE 20 MG TAB PO SCH (21:05)
[2018-11-16] MEDS: SENNA 8.6 MG TAB (SENOKOT) PO SCH (21:05)
[2018-11-16 22:00] VITALS: BP 137/81
[2018-11-17] MEDS: IPRATROPIUM 0.5MG/ALBUTEROL 2.5MG INH SOL UD 3ML (DUONEB)(J7620) NEB SCH ×2 (03:24→08:44)
[2018-11-17 06:00] VITALS: BP 141/83
[2018-11-17] MEDS: LEVOTHYROXINE 75MCG TABLET (0.075MG) PO SCH (06:01)
[2018-11-17] MEDS: HEPARIN SOD (PORCINE) 5000 UNITS/ML VIAL SC SCH (06:01)
[2018-11-17 06:41] LABS: BASO % 0.3 % (0.0-1.0); EOS # 0.1 10^3/uL (0.0-0.50); EOS % 1.2 % (0.0-3.0); HEMATOCRIT 39.2 % (42.0-52.0); HEMOGLOBIN 13.7 g/dl (13.5-17.5); LYMPH # 1.7 10^3/uL (1.5-4.5); LYMPH % 16.4 % (24.0-44.0); MEAN CORPUSCULAR HEMOGLOBIN 32.9 pg (27.0-33.0); MEAN CORPUSCULAR HGB CONC 34.9 g/dl (32.0-36.5); MONO # 1.4 10^3/uL (0.0-0.8); MONO % 13.8 % (0.0-5.0); NEUTROPHILS % 67.4 % (36.0-66.0); PLATELET COUNT, AUTOMATED 197 10^3/uL (150-450); RED BLOOD COUNT 4.17 10^6/uL (4.30-6.10); WHITE BLOOD COUNT 10.3 10^3/uL (4.0-10.0)
[2018-11-17 07:07] LABS: CALCIUM LEVEL 9.3 MG/DL (8.8-10.2); CREATININE FOR GFR 1.37 MG/DL (0.70-1.30); GLOMERULAR FILTRATION RATE 52.2 (>35); POTASSIUM SERUM 3.7 MEQ/L (3.5-5.1)
[2018-11-17 09:28] VITALS: BP 125/76
[2018-11-17] MEDS ORDERED: CEFD300CAP PO (09:48)
[2018-11-17] MEDS: CEFDINIR 300 MG CAP (OMNICEF) PO SCH (10:45)
[2018-11-17] MEDS: SENOKOT S TAB PO SCH (10:45)
[2018-11-17] MEDS: FOLIC ACID 1 MG TAB PO SCH (10:46)
[2018-11-17] MEDS: ASPIRIN 81 MG ENTERIC TAB PO SCH (10:46)
[2018-11-17] MEDS: predniSONE 20 MG TAB PO SCH (10:47)
[2018-11-17] MEDS: PANTOPRAZOLE 40MG TAB (PROTONIX) PO SCH (10:47)
[2018-11-17] MEDS: hydroCHLOROthiazide 25 MG TAB PO SCH (10:48)
--- NOTE | 2018-11-17 12:07 | DS.PDOC ---
Discharge Summary General Date of Admission Nov 13, 2018 at 19:20 Date of Discharge 11/17/18 Attending Physician: MOLLY RILEY MD Discharge Summary PCP: Petros Porras PROCEDURES PERFORMED DURING STAY: None ADMITTING DIAGNOSES: 1. Shortness of breath 2. Lactic acidosis DISCHARGE DIAGNOSES: 1. Community-acquired pneumonia COMPLICATIONS/CHIEF COMPLAINT: Rll Pneumonia. HISTORY OF PRESENT ILLNESS/HOSPITAL COURSE: Patient is an 88-year-old who presented with shortness of breath, weakness, difficulty ambulating, with a low- grade fever. On initial evaluation. Chest x-ray confirmed the patient had right lower lobe infiltrate, indicating pneumonia. Initial laboratory had a potassium of 3.4, lactic acid of 3.2, white blood cell count of 25.7. Hospitalist team was consulted, to mid patient for pneumonia, with elevated lactic acid and leukocytosis. Patient was admitted and started on IV ceftriaxone and azithromycin. Ceftriaxone was later discontinued and started on oral Cefdinir. Throughout his hospital stay, patient remained stable, his condition improved. He was discharged in stable condition with a seven-day course of cefdinir. He was having to be discharged. No question of discharge. DISCHARGE MEDICATIONS: Please see below. ALLERGIES: Please see below. PHYSICAL EXAMINATION ON DISCHARGE: VITAL SIGNS: Please see below. GENERAL APPEARANCE: Alert no acute distress. SKIN: Warm, well perfused. LUNGS: Clear to auscultation bilaterally. HEART: Normal S1, S2. No murmurs, no rubs, no gallops ABDOMEN: Soft. No masses. Bowel sounds are present. EXTREMITIES: Moves all extremities equally. No gross deformities. PULSES: 2+ upper and lower extremity . LABORATORY DATA: Please see below. IMAGING: Chest x-ray Impression: Right lower lobe infiltrate CT abdomen and pelvis Impression: 1. Right lower lobe infiltrate consistent with pneumonia. 2. Stable ventral and bilateral inguinal hernias transmitting abdominal fat. 3. Advanced left colonic diverticulosis without CT evidence of diverticulitis. 4. 3.3 cm infrarenal abdominal aortic aneurysm, unchanged. 5. Small sliding hiatal hernia. PROGNOSIS: Stable ACTIVITY: As tolerated. DIET: Regular DISCHARGE PLAN: To [facility] with assisted living DISPOSITION: [facility]. DISCHARGE INSTRUCTIONS: 1. Continue antibiotic course ITEMS TO FOLLOWUP ON ON OUTPATIENT: 1. Pneumonia DISCHARGE CONDITION: Stable TIME SPENT ON DISCHARGE: Greater than 35 minutes. Vital Signs/I&Os Vital Signs Date Time Temp Pulse Resp B/P (MAP) Pulse Ox O2 Delivery O2 Flow Rate FiO2 11/17/18 09:28 97.8 95 19 125/76 (92) 91 11/14/18 08:30 2.0 11/14/18 03:59 Nasal Cannula I&O- Last 24 Hours up to 6 AM0 11/17/18 06:00 Intake Total 2280 ml Balance 2280 ml Laboratory Data Labs 24H Laboratory Tests 2 11/17/18 06:21: Immature Granulocyte % (Auto) 0.9, White Blood Count 10.3H, Red Blood Count 4.17L, Hemoglobin 13.7, Hematocrit 39.2L, Mean Corpuscular Volume 94.0, Mean Corpuscular Hemoglobin 32.9, Mean Corpuscular Hemoglobin Concent 34.9, Red Cell Distribution Width 14.7H, Platelet Count 197, Neutrophils (%) (Auto) 67.4H, Ly mphocytes (%) (Auto) 16.4L, Monocytes (%) (Auto) 13.8H, Eosinophils (%) (Auto) 1.2, Basophils (%) (Auto) 0.3, Neutrophils # (Auto) 7.0, Lymphocytes # (Auto) 1.7, Monocytes # (Auto) 1.4H, Eosinophils # (Auto) 0.1, Basophils # (Auto) 0.0, Nucleated Red Blood Cells % (auto) 0.0, Anion Gap 5L, Glomerular Filtration Rate 52.2, Blood Urea Nitrogen 20H, Creatinine 1.37H, Sodium Level 139, Potassium Level 3.7, Chloride Level 103, Carbon Dioxide Level 31, Calcium Level 9.3, Magnesium Level 2.0 CBC/BMP Laboratory Tests 11/17/18 06:21 Red Blood Count 4.17 L, Mean Corpuscular Volume 94.0, Mean Corpuscular Hemoglobin 32.9, Mean Corpuscular Hemoglobin Concent 34.9, Red Cell Distribution Width 14.7 H, Neutrophils (%) (Auto) 67.4 H, Lymphocytes (%) (Auto) 16.4 L, Monocytes (%) (Auto) 13.8 H, Eosinophils (%) (Auto) 1.2, Basophils (%) (Auto) 0.3, Neutrophils # (Auto) 7.0, Lymphocytes # (Auto) 1.7, Monocytes # (Auto) 1.4 H, Eosinophils # (Auto) 0.1, Basophils # (Auto) 0.0, Calcium Level 9.3 Discharge Medications Scheduled Aspirin (Aspirin EC) 81 Mg Tab, 81 MG PO DAILY, (Reported) Cefdinir (Cefdinir) 300 Mg Cap, 300 MG PO BID Cholecalciferol (Vitamin D3) 2,000 Unit Cap, 2,000 UNIT PO DAILY, (Reported) Docusate Sodium (Colace) 100 Mg Cap, 100 MG PO BID, (Reported) Famotidine (Famotidine) 40 Mg Tab, 40 MG PO QHS, (Reported) Folic Acid (Folic Acid) 1 Mg Tab, 1 MG PO DAILY, (Reported) Hydrochlorothiazide (Hydrochlorothiazide) 25 Mg Tab, 25 MG PO DAILY, (Reported) Levothyroxine Sodium (Levoxyl) 75 Mcg Tab, 75 MCG PO DAILY, (Reported) Pantoprazole Sodium Sesquihydr (Protonix) 40 Mg Tab, 40 MG PO BID, (Reported) TAKES AT 1100 & 1600 Potassium Chloride (Klor-Con M10) 10 Meq Tabcr, 10 MEQ PO DAILY, (Reported) Senna (Senna Lax) 8.6 Mg Tab, 2 TAB PO QHS, (Reported) Sucralfate (Sucralfate) 1 Gm Tab, 1 GM PO QID, (Reported) Scheduled PRN (Aluminum/Magnesium/Simeth 200-200-20 mg/5Ml) 1 Rosa Rosa, 30 ML PO Q4H PRN for INDIGESTION, (Reported) Acetaminophen (Tylenol) 325 Mg Tab, 325 MG PO DAILY PRN for PAIN, (Reported) Bismuth Subsalicylate (Pepto-Bismol) 262 Mg/15 Ml Rosa, 30 ML PO Q4H PRN for INDIGESTION, (Reported) Guaifenesin/Dextromethorphan (Guaifenesin/Dextromethorp 100-10 mg/5Ml) 1 Syp Syp, 5 ML PO QID PRN for COUGH, (Reported) Milk Of Magnesia (Milk of Magnesia) 1,200 Mg/15 Ml Rosa, 30 ML PO Q4H PRN for CONSTIPATION, (Reported) Polyethylene Glycol (Miralax) 1 Pow Pow, 17 GM PO DAILY PRN for CONSTIPATION, (Reported) Simethicone (Simethicone) 80 Mg Chew, 80 MG PO Q6H PRN for GAS PAIN, (Reported) Allergies Coded Allergies: No Known Allergies (Unverified , 11/13/17) GME ATTESTATION GME ATTESTATION My faculty preceptor for this patient encounter was physically present during the encounter and was fully available. All aspects of the patient interview, examination, medical decision making process, and medical care plan development were reviewed and approved by the faculty preceptor. The faculty preceptor is aware and concurs with the plan as stated in the body of this note and will attest to such by his/her cosignature. CHARITO ANDERSON DO Nov 17, 2018 12:07
== END 2018-11-17 11:24 | DRG 194 ==
LOC: EDBD 10:35 → M ED 10:35 → M ED INP 19:20 → M MS5PR 11-14 14:34
PROVIDERS: ADMIT Internal Medicine; ATTEND Internal Medicine
DX: J18.9 Pneumonia, unspecified organism (principal); E87.2 Acidosis; I71.4 Abdominal aortic aneurysm, without rupture; E87.6 Hypokalemia; E83.42 Hypomagnesemia; K21.9 Gastro-esophageal reflux disease without esophagitis; I10 Essential (primary) hypertension; E03.9 Hypothyroidism, unspecified; K59.09 Other constipation; Z79.82 Long term (current) use of aspirin; Z79.899 Other long term (current) drug therapy

== ENCOUNTER → 2019-03-16 | Outpatient (CLI) | payer MEDICARE, MEDICAID ==
[~2019-03-16] MED LIST changes: +CEFD300CAP PO; +SIME80TA PO
--- NOTE | 2019-03-16 11:21 | REP ---
Right upper quadrant sonography: History: Pain after eating. Comparison study: Comparison CT study November 13, 2018. Findings: Scanning through the right upper quadrant of the abdomen demonstrates a normal sized, thin-walled gallbladder without evidence of stone or polyp. Common bile duct is normal measuring 0.4 cm in greatest diameter. No focal liver lesion is seen. Liver size is normal. No pancreatic abnormality is observed. No right renal abnormality is seen. There is no evidence of ascites. The right kidney measures 11.1 x 5.1 x 5.6 cm. Impression: Negative right upper quadrant sonography. Electronically Signed by Ashok Espino MD 03/16/2019 11:12 A
--- NOTE | 2019-03-16 11:50 | REP ---
CHEST X-RAY: TWO VIEWS. HISTORY: Decreased breath sounds. Rhonchi in the left lower lobe. COMPARISON CHEST X-RAY: November 13, 2018 FINDINGS: The lungs are symmetrically aerated and free of infiltrate. Pleural angles are sharp. Heart size is borderline, unchanged. The aorta is calcific and a little tortuous. Pulmonary vasculature is not increased. No acute bony abnormality is seen. IMPRESSION: No active pulmonary disease seen. Borderline heart size. Electronically Signed by Ashok Espino MD 03/16/2019 03:42 P
== END ==
LOC: M RAD 08:55
PROVIDERS: ATTEND Physician Assistant
DX: R10.9 Unspecified abdominal pain (principal)

== ENCOUNTER 2019-03-22 08:07 | Emergency (ER) | payer MEDICARE, MEDICAID ==
[~2019-03-22] VITALS: Ht 160 cm; Wt 79.1 kg
--- NOTE | 2019-03-22 11:07 | REP ---
LEFT SHOULDER, THREE VIEWS: Three views of the left shoulder are performed. There is no acute fracture or dislocation. There is moderate spurring and ligamentous calcification as well narrowing at the acromioclavicular joint. There appears to be narrowing of the glenohumeral joint as well. IMPRESSION: Degenerative changes. No fracture or dislocation. Electronically Signed by Daniel March MD 03/22/2019 04:32 P
[2019-03-22 11:12] VITALS: BP 179/96
== END 2019-03-22 11:17 | disposition home or self-care (01) ==
LOC: EDBD 08:07 → M ED 08:07
DX: S43.005A Unspecified dislocation of left shoulder joint, initial encounter (principal); W19.XXXA Unspecified fall, initial encounter; Y92.129 Unspecified place in nursing home as the place of occurrence of the external cause; Y93.9 Activity, unspecified; Y99.9 Unspecified external cause status; M75.92 Shoulder lesion, unspecified, left shoulder; M75.32 Calcific tendinitis of left shoulder; Z79.82 Long term (current) use of aspirin; Z79.899 Other long term (current) drug therapy

== ENCOUNTER → 2019-07-09 | Outpatient (CLI) | payer MEDICARE, MEDICAID ==
[~2019-07-09] MED LIST changes: +GASTROGRAFIN SOLUTION 30ML (Q9963) As Ordered ONE; +ISOVUE-370 76% 100ML VIAL (Q9967) As Ordered ONE
--- NOTE | 2019-07-09 14:32 | REP ---
REASON FOR EXAM: Abdominal pain. COMPARISON: Multiple, the latest 11/13/2018. CONTRAST: 100 mL Isovue 370. [place] artifact is seen arising from the patient's hands and arms strewn across the abdomen during scanning. The precontrast enhanced portion of the examination shows hepatic and splenic densities to be within normal limits. There is no evidence of cholelithiasis. Tiny nephroliths could be obscured by the artifact. The patchy opacities seen previously in the right lung lower lobe has cleared. There are no pleural or pericardial effusions. The contrast enhanced portion of the examination shows the liver, gallbladder, spleen, pancreas, adrenal glands, and kidneys to be essentially unchanged. Note is again made of an infrarenal abdominal aortic aneurysm which measures approximately 3.3 cm and is unchanged. No free fluid or free air is seen in the abdomen. There are a few mildly dilated small bowel loops filled with contrast, fluid, and gas. This represents a change compared to the prior exam. There is colonic diverticulosis. CT PELVIS: There is significant sigmoid colon diverticulosis. There is no free fluid or free air. There is no evidence of pelvic sidewall adenopathy. Once again, there is a large amount of adipose tissue seen in each inguinal canal. This has been stable since the first CT on record 11/29/2017. No bowel containing inguinal hernias are present. There is a small ventral hernia through which only mesentery protrudes. This is essentially unchanged. Bone window technique throughout the exam shows chronic spinal, hip, sacroiliac joint degenerative changes status quo. IMPRESSION: 1. An ileus is suspected. Early small bowel obstruction cannot be ruled out. 2. Essentially unchanged infrarenal abdominal aortic aneurysm. 3. Diverticulosis as described above. 4. Since a colonic neoplasm is of clinical concern as per the history given to me "apple core colonic lesion" colonoscopy is recommended. No definite colonic lesion is seen by this CT which does not obviate further assessment with colonoscopy. 5. Ventral hernia as described above. 6. Other findings as described above. Electronically Signed by Santo Reddy DO 07/09/2019 02:34 P
== END ==
LOC: M RAD 09:22
PROVIDERS: ATTEND Internal Medicine
DX: R10.9 Unspecified abdominal pain (principal); K57.30 Diverticulosis of large intestine without perforation or abscess without bleeding; K43.9 Ventral hernia without obstruction or gangrene
CPT/HCPCS: 74178; Q9963; Q9967

== ENCOUNTER 2019-07-24 20:35 | Inpatient (IN) | payer MEDICARE, MEDICAID ==
[~2019-07-24] VITALS: Ht 165.1 cm; Wt 72.5 kg
[~2019-07-24 20:35] MED LIST changes: -GASTROGRAFIN SOLUTION 30ML (Q9963) As Ordered ONE; -ISOVUE-370 76% 100ML VIAL (Q9967) As Ordered ONE
[2019-07-24] MEDS ORDERED: MILKSUS3 PO (22:28)
[2019-07-24] MEDS ORDERED: ACET1TAB55 PO (22:28)
[2019-07-24] MEDS ORDERED: MIRA3350 PO (22:28)
[2019-07-24] MEDS ORDERED: SENN8.6T58 PO (22:28)
[2019-07-24] MEDS ORDERED: GUAI1SYP8 PO (22:28)
[2019-07-24] MEDS ORDERED: KAOP262S PO (22:34)
[2019-07-24] MEDS ORDERED: ONDA-195 PO (22:34)
[2019-07-24] MEDS ORDERED: QUET5TAB PO (22:34)
[2019-07-24] MEDS ORDERED: DEXT30SU29 PO (22:34)
[2019-07-24 22:56] LABS: BASO # 0.1 10^3/uL (0.0-0.2); BASO % 0.3 % (0.0-1.0); HEMOGLOBIN 14.3 g/dl (13.5-17.5); LYMPH # 1.5 10^3/uL (1.5-5.0); LYMPH % 6.3 % (24.0-44.0); MEAN CORPUSCULAR HEMOGLOBIN 33.1 pg (27.0-33.0); MEAN CORPUSCULAR HGB CONC 34.9 g/dl (32.0-36.5); MEAN CORPUSCULAR VOLUME 94.9 fl (80.0-96.0); MONO % 8.3 % (0.0-5.0); NEUTROPHILS # 20.2 10^3/uL (1.5-8.5); NEUTROPHILS % 84.2 % (36.0-66.0); PLATELET COUNT, AUTOMATED 154 10^3/uL (150-450); RED BLOOD COUNT 4.32 10^6/uL (4.30-6.10)
[2019-07-24 23:20] LABS: ALBUMIN 3.2 GM/DL (3.2-5.2); BILIRUBIN,DIRECT 0.3 MG/DL (0.0-0.2); BILIRUBIN,TOTAL 1.1 MG/DL (0.2-1.0); CK-MB VALUE MASS 2.6 NG/ML (<3.6); MB/CK RELATIVE INDEX 1.44 (< OR =4); TOTAL PROTEIN 6.5 GM/DL (6.4-8.2); TROPONIN I 0.04 NG/ML (< 0.10)
[2019-07-24] MEDS ORDERED: ISOVUE-370 76% 100ML VIAL (Q9967) As Ordered ONE (23:47)
--- NOTE | 2019-07-25 00:27 | REPVR ---
PROCEDURE INFORMATION: Exam: CT Chest With Contrast Exam date and time: 07/24/2019 11:36 PM Clinical history: 88 years old, male; Chest pain; Type not specified; Additional info: SOB, epigastric abd pain TECHNIQUE: Imaging protocol: Computed tomography of the chest with intravenous contrast. Radiation optimization: All CT scans at this facility use at least one of these dose optimization techniques: automated exposure control; mA and/or kV adjustment per patient size (includes targeted exams where dose is matched to clinical indication); or iterative reconstruction. Contrast material: ISO; Contrast volume: 100 ml; Contrast route: AC; COMPARISON: No relevant prior studies available. FINDINGS: Lungs: Patchy densities in the right lung, predominantly involving the right lower lobe may reflect atelectasis or pneumonitis. Correlate with clinical information. Mild dependent atelectasis in the left lung base. Pleural space: No pleural effusion. Heart: Unremarkable. No cardiomegaly. No pericardial effusion. Mediastinum: Small hiatal hernia. Pulmonary arteries: No pulmonary embolism identified. Aorta: The ascending aorta is mildly ectatic measuring 3.8 cm. No dissection is identified. Lymph nodes: Mediastinal and right hilar lymph nodes are at upper limits of normal size. Bones/joints: No acute osseous abnormality is detected. Mild degenerative changes of the thoracic spinal endplates. Other findings: There is evidence of previous granulomatous reaction. IMPRESSION: 1. Atelectasis versus pneumonitis predominantly involving the right lower lobe. Correlate with clinical information. 2. Mediastinal and right hilar lymph nodes are at upper limits of normal size, nonspecific but may be reactive. 3. Small hiatal hernia. Electronically signed by: Kayla Li On 07/25/2019 00:27:12 AM
--- NOTE | 2019-07-25 00:36 | REPVR ---
PROCEDURE INFORMATION: Exam: CT Abdomen And Pelvis With Contrast Exam date and time: 07/24/2019 11:36 PM Clinical history: 88 years old, male; Abdominal pain; Epigastric; Additional info: SOB, epigastric abd pain TECHNIQUE: Imaging protocol: Computed tomography of the abdomen and pelvis with intravenous contrast. Radiation optimization: All CT scans at this facility use at least one of these dose optimization techniques: automated exposure control; mA and/or kV adjustment per patient size (includes targeted exams where dose is matched to clinical indication); or iterative reconstruction. Contrast material: ISO; Contrast volume: 100 ml; Contrast route: AC; COMPARISON: CT ABD PELVIS W/O FOL BY WIT 07/09/2019 11:13 AM FINDINGS: Mediastinum: Small hiatal hernia. Liver: There are no focal liver lesions present. Gallbladder and bile ducts: The gallbladder is normal. Pancreas: The pancreas is normal. Spleen: The spleen is normal. Adrenals: The adrenal glands are normal. Kidneys and ureters: There is no evidence of hydronephrosis. The kidneys are normal. Stomach and bowel: The stomach is normal. Diverticulosis coli. No findings of acute diverticulitis. No bowel obstruction is seen. Appendix: No evidence of appendicitis. Intraperitoneal space: Unremarkable. No free air. No significant fluid collection. Vasculature: Atherosclerotic vascular disease is noted. There is infrarenal abdominal aortic ectasia measuring 3.0 cm. 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 The SMA is patent. There is mild stenosis of the right renal artery. The inferior mesenteric artery is patent. Lymph nodes: No lymphadenopathy. Bladder: The bladder is normal. Reproductive: Unremarkable as visualized. Bones/joints: Degenerative changes of lower lumbar spine. No acute fracture. Soft tissues: There are fat containing inguinal hernias bilaterally, larger on the left. IMPRESSION: 1. Small hiatal hernia. 2. Moderate stenosis of the celiac trunk. 3. Diverticulosis coli. Electronically signed by: Kayla Li On 07/25/2019 00:36:33 AM
[2019-07-25] MEDS ORDERED: cefTRIAXone SOD 2 GM in D5W MINI-BAG PLUS 50 ML IV ONE (01:00)
[2019-07-25] MEDS ORDERED: NS 1,000 ML IV ONE (02:15)
[2019-07-25] MEDS ORDERED: MIRALAX *UNIT DOSE* 17GM PACKET PO PRN (05:30)
[2019-07-25] MEDS ORDERED: ACETAMINOPHEN 325 MG TAB PO PRN (05:30)
[2019-07-25] MEDS ORDERED: ONDANSETRON 4 MG TAB (S0181) PO PRN (05:30)
[2019-07-25] MEDS ORDERED: guaiFENesin DM LIQ 10ML UD PO PRN (05:30)
[2019-07-25] MEDS ORDERED: DEXTROMETHORPHAN 60MG/10ML SUSP 90ML BTL(DELSYM) PO PRN (05:30)
[2019-07-25] MEDS ORDERED: MAALOX 30 ML SUSP *UDC PO PRN (05:30)
[2019-07-25] MEDS ORDERED: PINK BISMUTH SUSP 524MG/30ML ORAL SYRINGE PO PRN (05:30)
[2019-07-25] MEDS ORDERED: SIMETHICONE 80 MG CHEW TAB PO PRN (05:30)
[2019-07-25] MEDS ORDERED: MOM 30ML SUSPENSION UDC PO PRN (05:30)
[2019-07-25] MEDS: LEVOTHYROXINE 75MCG TABLET (0.075MG) PO SCH (06:20)
[2019-07-25] MEDS ORDERED: cefTRIAXone SOD 2 GM in D5W MINI-BAG PLUS 50 ML IV SCH (06:30)
[2019-07-25] MEDS: HEPARIN SOD (PORCINE) 5000 UNITS/ML VIAL SC SCH ×3 (07:09→21:39)
[2019-07-25] MEDS: DOXYCYCLINE HYCLATE 100 MG in D5W MINI-BAG PLUS 100 ML IV SCH ×2 (07:36→19:47)
[2019-07-25 08:00] VITALS: BP 129/63
[2019-07-25 08:08] LABS: HEMATOCRIT 38.1 % (42.0-52.0); HEMOGLOBIN 13.1 g/dl (13.5-17.5); MEAN CORPUSCULAR HEMOGLOBIN 32.5 pg (27.0-33.0); MEAN CORPUSCULAR HGB CONC 34.4 g/dl (32.0-36.5); MEAN CORPUSCULAR VOLUME 94.5 fl (80.0-96.0); PLATELET COUNT, AUTOMATED 145 10^3/uL (150-450); RED BLOOD COUNT 4.03 10^6/uL (4.30-6.10); WHITE BLOOD COUNT 22.7 10^3/uL (4.0-10.0)
--- NOTE | 2019-07-25 08:38 | REP ---
Chest x-ray: Two views. History: Abdomen pain. Comparison chest x-ray: March 16, 2019. Findings: Monitoring electrodes are seen. There is a infiltrate in the right lower lobe consistent with pneumonia. No free subdiaphragmatic air is seen. No pleural effusion is noted. Heart is not enlarged. There is linear fibrosis in the left base. Impression: Right lower lobe infiltrate consistent with pneumonia. Electronically Signed by Ashok Espino MD 07/25/2019 08:29 A
[2019-07-25 08:43] LABS: CALCIUM LEVEL 8.4 MG/DL (8.8-10.2); CREATININE FOR GFR 1.28 MG/DL (0.70-1.30); GLOMERULAR FILTRATION RATE 56.5 (>35); POTASSIUM SERUM 2.8 MEQ/L (3.5-5.1)
[2019-07-25] MEDS: ASPIRIN 81 MG ENTERIC TAB PO SCH (08:43)
[2019-07-25] MEDS: VITAMIN D 1,000 INTERNATIONAL UNITS TABLET PO SCH (08:43)
[2019-07-25] MEDS: SUCRALFATE 1 GM TAB PO SCH ×5 (08:43→21:44)
[2019-07-25] MEDS: cefTRIAXone SOD 2 GM in D5W MINI-BAG PLUS 50 ML IV SCH (08:44)
[2019-07-25] MEDS: PANTOPRAZOLE 40MG TAB (PROTONIX) PO SCH ×2 (08:44→21:38)
[2019-07-25] MEDS: DOCUSATE SODIUM 100 MG CAP PO SCH ×2 (08:44→21:00)
[2019-07-25] MEDS: FOLIC ACID 1 MG TAB PO SCH (08:44)
[2019-07-25] MEDS ORDERED: hydroCHLOROthiazide 25 MG TAB PO SCH (09:00)
[2019-07-25] MEDS ORDERED: cefTRIAXone SOD 2 GM VIAL (J0696) IV ONE (09:00)
[2019-07-25] MEDS ORDERED: POTASSIUM CHLORIDE 10 MEQ SR TABLET PO SCH (09:00)
--- NOTE | 2019-07-25 09:03 | HPEPDOC ---
[facility] Medical History & Physical Date of Admission Jul 25, 2019 Date of Service: Jul 25, 2019 Attending Physician: RICHIE CESPEDES MD History and Physical CHIEF COMPLAINT: Increased confusion with decrease in daily activity HISTORY OF PRESENT ILLNESS: Connor is an 88-year-old male with pertinent past medical history of dementia, recurrent pneumonia, hypertension, hypothyroidism, and GERD, who presented to the emergency department late in the evening on 07/24 from his [facility] facility with chief complaints - - provided by patient's living facility staff - - of a recent increase in confusion with a decrease in daily activity. Due to patient's baseline dementia, and with no sales representative education courses from patient's living facility present at time of hospitalist history and physical exam, an accurate HPI was not able to be obtained. Two-view chest x-ray showed right lower lobe infiltrate (although formal read from radiology not yet entered) and chest CT with contrast showed atelectasis versus pneumonitis predominantly involving the right lower lobe. Patient was given a single dose of 2 g of ceftriaxone, as well as supplemental oxygen in the form of 1 L nasal cannula. Along with patient's medical paperwork from the [facility], there was a completed MOLST form verifying that patient's CODE STATUS is DNR/DNI. In the emergency department, the patient was alert and oriented 1. He was hypoxic on room air, afebrile, was not tachycardic nor tachypneic. Initial labs showed leukocytosis with a neutrophil predominance, mildly direct hyperbilirubinemia, with initial lactic acid level of 2.8. PAST MEDICAL HISTORY: *Not provided from patient due to his baseline dementia. The following were taken from his accompanying records from the [facility].* History of dementia Recurrent pneumonias Essential hypertension Hypothyroidism GERD History of constipation History of dysphagia History of B12 deficient anemia Hyperlipidemia Osteoarthritis Vitamin D deficiency PAST SURGICAL HISTORY: Unknown at this time. Not provided per patient due to his baseline dementia nor found in accompanying medical paperwork from patient's residence at [facility]. SOCIAL HISTORY: Patient lives at the [facility]. Other relevant social history, tobacco use, alcohol use, illegal drug use was not able to be obtained from patient due to his baseline dementia. FAMILY HISTORY: Relevant family medical history was unable to be obtained from patient due to h is baseline dementia. ALLERGIES: Please see below. REVIEW OF SYSTEMS: Due to patient's baseline dementia, an accurate review of systems was unable to be obtained. HOME MEDICATIONS: Please see below. PHYSICAL EXAMINATION: VITAL SIGNS: Please see below GENERAL APPEARANCE: Patient is an elderly man with noticeable dementia who was not alert and oriented to person, place or time. His responses to questions and commands were mostly lacking, although he did respond to some commands throughout the physical exam. His verbal responses to questions were out of context and did not correlate to what was being asked. He was pleasant and smiling throughout the exam. He did not appear to be in any acute respiratory distress while lying upright in bed on 1 L nasal cannula of supplemental oxygen. HEENT: Normocephalic, atraumatic. Anicteric sclera. Yellow crusting present along bilateral eyelashes as well as yellow crusting collected in outer ears bilaterally. No pharyngeal erythema or exudate. Patient has no upper or lower teeth present. Neck is supple. Trachea is midline. There was no palpable cervical or supraclavicular lymphadenopathy. CARDIOVASCULAR: Very distant heart sounds making it difficult to appreciate S1 and S2 or assess for any murmurs, rubs, or gallops. Background noise of upper airway breath sounds also contributed to challenges of heart auscultation. Palpable radial and dorsalis pedis pulses bilaterally. Capillary refill between 2-3 seconds bilaterally. No lower extremity edema present. LUNGS: Soft crackles on both inspiration and expiration of right middle and lower lung. Diminished tidal volume. No visible accessory muscle use or retractions with respiration. Patient was breathing on 1 L of nasal cannula. He was speaking in full sentences and not becoming short of breath. ABDOMEN: Soft, nondistended abdomen. Patient did not wince in pain or have rebound or guarding. When abdominal quadrants were palpated. Normoactive bowel sounds present. Possible ventral hernia versus diastases recti palpated just superior to umbilicus. There were no other palpable masses appreciated. Negative Ronnie sign bilaterally. MUSCULOSKELETAL: Patient was able to move bilateral upper and lower extremities on command. Patient was also able to stand out of bed under his own power to use bedside urinal. : Patient urinated approximately 250ml using bedside urinal. Urine appeared smith in color. EXTREMITIES: No lower extremity edema present. There was no clubbing or cyanosis. Palpable radial and dorsalis pedis pulses bilaterally. NEUROLOGICAL: Patient was awake and pleasant during exam, but was not oriented to person, place, or time. He occasionally would respond appropriately to commands throughout the physical exam, but for the most part his verbal answers to questions and responses to commands were out of context and not appropriate. PSYCHIATRIC: Pleasant mood with visible signs of dementia. LABORATORY DATA: Please see below. IMAGIN07/24/19, abdomen and pelvis CT with IV contrast showed small hiatal hernia. Moderate stenosis of the celiac trunk. Diverticulosis coli. 07/24/19, chest CT with contrast- showed atelectasis versus pneumonitis predominantly involving the right lower lobe. Correlate with clinical information. Mediastinal and right hilar lymph nodes are upper limits of normal size, nonspecific but may be reactive. Small hiatal hernia. 07/24/19, chest x-ray, PA and lateral *official read not yet in from radiology at this time; cursory review shows patchy infiltrate in the right lower lung lobe MICROBIOLOGY: Please see below. ASSESSMENT & PLAN: This is an 88-year-old elderly man with a pertinent past medical history of dementia, recurrent pneumonias, hypertension, hypothyroidism, and GERD who was brought to the emergency department by the staff from his residence at the [facility] with the chief complaints of increased confusion and decreased activity recently. Initial labs showed leukocytosis with nonremarkable. Lactic acid level. Initial imaging showed a right lower lung lobe pneumonitis versus pneumonia versus atelectasis. Patient received single dose of 2 g ceftriaxone in the ED and was provided supplemental oxygen in the form of 1 L nasal cannula. #Right lower lung lobe infiltrate -CT of the chest with contrast was read as right lower lung lobe atelectasis versus pneumonitis -Patient had leukocytosis and has history of recurrent pneumonias. -Per assisted living facility where patient resides, he has recently been confused and had decreased activity -Crackles were present on auscultation of right middle and lower lung. On exam -Patient now receiving both ceftriaxone and doxycycline for antibiotic coverage -Atypical pneumonia profile ordered. -Aspiration precautions ordered -Incentive spirometry ordered -Repeat morning labs ordered -Sputum culture and Gram stain ordered #History of dementia -Patient was pleasant during exam, but his verbal responses and responses to commands were mostly out of context and illogical -Patient's home Seroquel continued -Patient placed on fall risk precautions #Essential hypertension -Patient's hydrochlorothiazide continued #Hypothyroidism -Patient's home levothyroxine continued #GERD -Patient's home Protonix continued #DVT prophylaxis: SC heparin ordered -Consider possible PFS consult as patient currently lives in [facility] assisted living, which does not have icing and glaze maker nursing. [facility] also offer correction facility that may be better in terms of providing continual care to patient. Vital Signs Vital Signs Date Time Temp Pulse Resp B/P (MAP) Pulse Ox O2 Delivery O2 Flow Rate FiO2 07/25/19 08:00 97.6 80 18 129/63 (85) 93 Nasal Cannula 3.0 Laboratory Data Labs 24H Laboratory Tests 2 07/24/19 22:50: Immature Granulocyte % (Auto) 0.9, Neutrophils (%) (Auto) 84.2H, Lymphocytes (%) (Auto) 6.3L, Monocytes (%) (Auto) 8.3H, Eosinophils (%) (Auto) 0.0, Basophils (%) (Auto) 0.3, Neutrophils # (Auto) 20.2H, Lymphocytes # (Auto) 1.5, Monocytes # (Auto) 2.0H, Eosinophils # (Auto) 0.0, Basophils # (Auto) 0.1, Nucleated Red Blood Cells % (auto) 0.0, Total Bilirubin 1.1H, Direct Bilirubin 0.3H, Aspartate Amino Transf (AST/SGOT) 17, Alanine Aminotransferase (ALT/SGPT) 15, Alkaline Ph osphatase 109, Total Creatine Kinase 180, Creatine Kinase MB 2.6, Creatine Kinase MB Relative Index 1.44, Troponin I 0.04, Total Protein 6.5, Albumin 3.2, Albumin/Globulin Ratio 0.97L, Lipase 43L 07/24/19 22:56: POC Glucose (Misc Panel) 116H, POC Sodium (Misc Panel) 137, POC Potassium (Misc Panel) 3.6, POC Chloride (Misc Panel) 99, POC Total CO2 (Misc Panel) 27.0, POC Blood Urea Nitrogen (Misc Panel 26, POC Ionized Calcium (Misc Panel) 4.6, POC Creatinine (Misc Panel) 1.5H, POC Hematocrit (Misc Panel) 43.0 07/25/19 01:29: Lactic Acid Level 2.8*H 07/25/19 05:52: Lactic Acid Followup at 4 Hours 2.1*H 07/25/19 07:51: Nucleated Red Blood Cells % (auto) 0.0 CBC/BMP Laboratory Tests 07/24/19 22:50 07/25/19 07:51 Microbiology Microbiology 07/25/19 Blood Culture, Received Pending 07/25/19 Blood Culture, Received Pending Home Medications Scheduled Aspirin (Aspirin EC) 81 Mg Tab, 81 MG PO DAILY Cholecalciferol (Vitamin D3) (Vitamin D3) 2,000 Unit Cap, 2,000 UNIT PO DAILY 1100 Docusate Sodium (Colace) 100 Mg Cap, 100 MG PO BID Famotidine (Famotidine) 40 Mg Tab, 40 MG PO QHS Folic Acid (Folic Acid) 1 Mg Tab, 1 MG PO DAILY Hydrochlorothiazide (Hydrochlorothiazide) 25 Mg Tab, 25 MG PO DAILY Levothyroxine Sodium (Levoxyl) 75 Mcg Tab, 75 MCG PO DAILY Pantoprazole Sodium (Protonix) 40 Mg Tab, 40 MG PO BID TAKES AT 1100 & 1600 Potassium Chloride (Klor-Con M10) 10 Meq Tabcr, 10 MEQ PO DAILY Quetiapine Fumarate (Quetiapine Fumarate) 50 Mg Tablet, 50 MG PO QHS Sennosides (Senna) 8.6 Mg Tablet, 17.2 MG PO QHS for constipation Sucralfate (Sucralfate) 1 Gm Tab, 1 GM PO QID Scheduled PRN Acetaminophen (Acetaminophen) 325 Mg Tablet, 325 MG PO DAILY PRN for PAIN Bismuth Subsalicylate (Kaopectate) 262 Mg/15 Ml Oral.susp, 30 ML PO Q4H PRN for DYSPEPSIA Dextromethorphan Polistirex (Robitussin ER) 30 Mg/5 Ml Rosa.er.12h, 5 ML PO QID PRN for COUGH Guaifenesin/Dextromethorphan (Guaifenesin Dm Syrup) 237 Ml Syrup, 5 ML PO QID PRN for COUGH Mag Hydrox/Aluminum Hyd/Simeth (Magnesium-Aluminum Suspension) 1 Rosa Rosa, 30 ML PO Q4H PRN for INDIGESTION Magnesium Hydroxide (Milk of Magnesia) 400 Mg/5 Ml Oral.susp, 30 ML PO Q4H PRN for CONSTIPATION Ondansetron HCl (Ondansetron HCl) 4 Mg Tablet, 4 MG PO Q6H PRN for NAUSEA Polyethylene Glycol 3350 (Miralax) 119 Gm Powder, 17 GM PO DAILY PRN for CONSTIPATION dilute in 8 ounces of water or juice Simethicone (Simethicone) 80 Mg Chew, 80 MG PO Q6H PRN for GAS PAIN Allergies Coded Allergies: No Known Allergies (Unverified , 11/13/17) GME ATTESTATION My faculty preceptor for this patient encounter was physically present during the encounter and was fully available. All aspects of the patient interview, examination, medical decision making process, and medical care plan development were reviewed and approved by the faculty preceptor. The faculty preceptor is aware and concurs with the plan as stated in the body of this note and will attest to such by his/her cosignature. ATTENDING NOTE I agree with the findings above. Mr. Ceron is a pleasant 88 yo man with a history of dementia who came in from his assisted living facility per housing staff for increased confusion and was found to have a leukocytosis with studies thus far c/f pneumonia and is being treated for CAP with ceftriaxone/doxycycline while studies are pending. He is otherwise hemodynamically stable at this time. A-FIB/CHADSVASC A-FIB History Current/History of A-Fib/PAF?: No Current PO Anticoag Therapy: No (patient receiving subcutaneous heparin for DVT prophylaxis while inpatient) EIRCA KAPOOR PGY-1 Jul 25, 2019 09:03 RICHIE CESPEDES MD Jul 25, 2019 09:48
[2019-07-25 09:33] LABS: MAGNESIUM LEVEL 1.5 MG/DL (1.8-2.4)
[2019-07-25] MEDS ORDERED: MAG SULF 1GM/100ML (MAG RUN) 1 GM in IV 1 EA IV ONE ×2 (10:00→19:00)
[2019-07-25] MEDS: POTASSIUM CHLORIDE 10 MEQ SR TABLET PO SCH ×2 (10:30→11:41)
[2019-07-25 15:30] VITALS: BP 136/80
[2019-07-25 16:06] LABS: IONIZED CALCIUM 4.6 MG/DL (4.5-5.3)
[2019-07-25 16:26] LABS: MAGNESIUM LEVEL 1.7 MG/DL (1.8-2.4); POTASSIUM SERUM 3.5 MEQ/L (3.5-5.1)
--- NOTE | 2019-07-25 16:27 | IPN ---
DATE: 07/25/2019 The patient is confused, demented. He is able to answer questions, but says "no" most of the time. Per nursing, the patient refused his breakfast this morning. He does have a dry cough. No fever or chills overnight. PHYSICAL EXAMINATION: VITAL SIGNS: Temperature 97.6, pulse 80, respiratory rate 18, blood pressure 129/63, 93% on 3 liters nasal cannula. GENERAL: The patient is awake, alert, and oriented to person only. The patient is disoriented to time and place. Not answering questions appropriately, but has purposeful movements, drinking his water at the bedside. The patient has no cervical lymphadenopathy or thyromegaly. No jugular venous distention (JVD). He is edentulous. Heart: S1, S2. Sinus rhythm. Abdomen: Soft, nontender, nondistended. Bowel sounds positive. Lungs: Diminished with bibasilar crackles. Extremities: No cyanosis, clubbing or any pitting edema. LABORATORY DATA: White count 22.7, hemoglobin 13, hematocrit 38, platelet count 145. Sodium 137, potassium 2.8, chloride 103, bicarbonate 26, BUN 19, creatinine 1.28, glucose 103, calcium 8.4, ionized calcium 4.3, magnesium 1.5. IMAGING STUDIES: CT of the chest on 07/24/2019 showed patchy density in the right lung representing atelectasis versus pneumonitis. No cardiomegaly. No pericardial effusion. CT of the abdomen and pelvis showed small hiatal hernia, moderate stenosis of the celiac, diverticulosis. ASSESSMENT AND PLAN: This is an 88-year-old male with chronic dementia, lives at [facility] ([facility]) living, brought into the hospital due to worsening confusion. Chest x-ray showed possible infiltrate in the right lower lobe. CT of the chest showed atelectasis versus pneumonitis in the right lower lobe. Being treated for possible pneumonia. CURRENT ISSUES: 1. Right lower lobe infiltrate. Currently on doxycycline, ceftriaxone. Awaiting results of the urine Streptococcus pneumoniae, urine Legionella. Supplemental oxygen if needed. Awaiting results of sputum culture and blood cultures. 2. History of dementia. On home dose of Seroquel. Fall precautions. 3. Reflux. On Protonix. 4. Hypothyroidism. On Synthroid. 5. Hypertension. Currently controlled. 6. Acute hypoxia secondary to possible pneumonia. 7. Electrolyte abnormalities. Low potassium and magnesium and calcium. Supplemented. 8. Lactic acidosis. Improved with IV fluids and IV antibiotics.
[2019-07-25] MEDS: POTASSIUM CHLORIDE 10 MEQ SR TABLET PO ONE ×2 (18:07→21:45)
[2019-07-25] MEDS: NS 1,000 ML IV SCH (18:07)
[2019-07-25] MEDS: QUEtiapine FUMARATE 50 MG TAB PO SCH (21:38)
[2019-07-25] MEDS: SENNA 8.6 MG TAB (SENOKOT) PO SCH (21:42)
[2019-07-25] MEDS: FAMOTIDINE 20 MG TAB PO SCH (21:43)
[2019-07-25 22:00] VITALS: BP 125/76
[2019-07-26 00:53] LABS: POTASSIUM SERUM 4.5 MEQ/L (3.5-5.1)
[2019-07-26] MEDS: NS 1,000 ML IV SCH (04:37)
[2019-07-26] MEDS: DOXYCYCLINE HYCLATE 100 MG in D5W MINI-BAG PLUS 100 ML IV SCH ×2 (05:34→18:09)
[2019-07-26] MEDS: LEVOTHYROXINE 75MCG TABLET (0.075MG) PO SCH (05:35)
[2019-07-26] MEDS: HEPARIN SOD (PORCINE) 5000 UNITS/ML VIAL SC SCH ×3 (05:35→21:39)
[2019-07-26 06:00] VITALS: BP 126/64
[2019-07-26 06:50] LABS: BLOOD UREA NITROGEN 14 MG/DL (7-18); CALCIUM LEVEL 8.6 MG/DL (8.8-10.2); CARBON DIOXIDE LEVEL 25 MEQ/L (21-32); CHLORIDE LEVEL 106 MEQ/L (98-107); CREATININE FOR GFR 1.07 MG/DL (0.70-1.30); GLOMERULAR FILTRATION RATE > 60.0 (>35); GLUCOSE, FASTING 109 MG/DL (70-100); POTASSIUM SERUM 3.3 MEQ/L (3.5-5.1); SODIUM LEVEL 137 MEQ/L (136-145)
[2019-07-26 06:56] LABS: BASO % 0.2 % (0.0-1.0); EOS # 0.4 10^3/uL (0.0-0.5); EOS % 2.8 % (0.0-3.0); HEMOGLOBIN 12.8 g/dl (13.5-17.5); LYMPH # 0.8 10^3/uL (1.5-5.0); LYMPH % 6.2 % (24.0-44.0); MEAN CORPUSCULAR HEMOGLOBIN 32.4 pg (27.0-33.0); MEAN CORPUSCULAR HGB CONC 33.7 g/dl (32.0-36.5); MEAN CORPUSCULAR VOLUME 96.2 fl (80.0-96.0); MONO # 1.1 10^3/uL (0.0-0.8); MONO % 7.8 % (0.0-5.0); NEUTROPHILS % 81.4 % (36.0-66.0); PLATELET COUNT, AUTOMATED 122 10^3/uL (150-450); RED BLOOD COUNT 3.95 10^6/uL (4.30-6.10); WHITE BLOOD COUNT 13.5 10^3/uL (4.0-10.0)
[2019-07-26] MEDS: SUCRALFATE 1 GM TAB PO SCH ×4 (09:00→21:00)
[2019-07-26] MEDS: cefTRIAXone SOD 2 GM in D5W MINI-BAG PLUS 50 ML IV SCH (09:09)
[2019-07-26] MEDS: DOCUSATE SODIUM 100 MG CAP PO SCH ×2 (12:17→21:00)
[2019-07-26] MEDS: ASPIRIN 81 MG ENTERIC TAB PO SCH (12:17)
[2019-07-26] MEDS: PANTOPRAZOLE 40MG TAB (PROTONIX) PO SCH ×2 (12:18→21:00)
[2019-07-26] MEDS: VITAMIN D 1,000 INTERNATIONAL UNITS TABLET PO SCH (12:18)
[2019-07-26] MEDS: FOLIC ACID 1 MG TAB PO SCH (12:18)
[2019-07-26] MEDS ORDERED: POTASSIUM CHLORIDE 10 MEQ SR TABLET PO ONE (13:00)
[2019-07-26 14:00] VITALS: BP 126/79
--- NOTE | 2019-07-26 16:27 | IPN ---
DATE: 07/26/2019 The patient has been very irritable and combative with nursing staff, requiring a sitter. We have encouraged the family to sit with him. He currently has no fever. No chills. Still with slight cough. REVIEW OF SYSTEMS: The patient is confused at baseline. Able to state his name but that is all. He tends to be repetitive and says "no, no, no." Otherwise, unable to obtain a full review of systems. PHYSICAL EXAMINATION: VITAL SIGNS: Temperature 97.8, pulse 73, respiratory rate 18, blood pressure 126/64, 96% on 3 liters nasal cannula. GENERAL: Awake, alert, oriented to himself only. HEART: S1, S2. Sinus rhythm. LUNGS: Right lower lobe crackles. ABDOMEN: Soft, nontender, nondistended. EXTREMITIES: No pitting edema. LABORATORY DATA: White count 13.5, hemoglobin 12, hematocrit 38, platelet count 122. Sodium 137, potassium 3.3, chloride 106, bicarbonate 25, BUN 14, creatinine 1, glucose 109. Two sets of blood cultures negative. ASSESSMENT AND PLAN: This is an 88-year-old with chronic dementia, lives at [facility], brought to the hospital with confusion and found to have right lower lobe infiltarte, pneumonitis versus pneumonia, currently being treated for the follwoin. Right lower lobe pneumonia. Doing well with decreasing white count, afebrile. No complaints of chills. On doxycycline and ceftriaxone. 2. Dementia. On home dose of Seroquel. Fall precautions. 3. Reflux. On Protonix. 4. Hypothyroidism. On Synthroid. 5. Hypertension, controlled. 6. Hypoxia due to pneumonia, resolved. 7. Electrolyte abnormalities. Low potassium and low magnesium supplemented.
--- NOTE | 2019-07-26 17:30 | REPVR ---
PROCEDURE INFORMATION: Exam: CT Head Without Contrast Exam date and time: 07/26/2019 5:16 PM Clinical history: 88 years old, male; Injury or trauma; Fall; Initial encounter; Blunt trauma (contusions or hematomas); Consciousness not specified TECHNIQUE: Imaging protocol: Computed tomography of the head without contrast. Radiation optimization: All CT scans at this facility use at least one of these dose optimization techniques: automated exposure control; mA and/or kV adjustment per patient size (includes targeted exams where dose is matched to clinical indication); or iterative reconstruction. COMPARISON: CT Head without contrast 12/18/2017 9:52 PM FINDINGS: Brain: There is diffuse volume loss. There is white matter lucency consistent with chronic microvascular disease. There is no acute infarct. There is no hemorrhage or extra-axial collection. There is no mass. Ventricles: Normal. No ventriculomegaly. Bones/joints: Unremarkable. No acute fracture. Sinuses: Visualized sinuses are unremarkable. No fluid levels. Mastoid air cells: Visualized mastoid air cells are well aerated. Soft tissues: Unremarkable. IMPRESSION: 1. Atrophy and chronic microvascular disease. 2. No acute intracranial lesion or injury and no change from prior scan. Electronically signed by: Jameson Palacios On 07/26/2019 17:30:11 PM
--- NOTE | 2019-07-26 19:40 | REP ---
A pelvis bilateral hip study: Five views. History: Injury in a fall. Rule out fracture. Findings: AP view of the pelvis and AP and frog-leg views of both hips are presented. There is no evidence of hip fracture on either side. The bony pelvic ring is intact. No pelvic or sacral fracture is seen. Periarticular soft tissues are unremarkable. Impression: Negative radiographs of the pelvis and both hips. No fracture is seen. Electronically Signed by Ashok Espino MD 07/26/2019 07:32 P
[2019-07-26] MEDS: FAMOTIDINE 20 MG TAB PO SCH (21:00)
[2019-07-26] MEDS: SENNA 8.6 MG TAB (SENOKOT) PO SCH (21:00)
[2019-07-26] MEDS: QUEtiapine FUMARATE 50 MG TAB PO SCH (21:37)
[2019-07-27 05:59] LABS: BASO % 0.3 % (0.0-1.0); EOS # 0.5 10^3/uL (0.0-0.5); EOS % 5.2 % (0.0-3.0); HEMOGLOBIN 13.3 g/dl (13.5-17.5); LYMPH % 9.7 % (24.0-44.0); MEAN CORPUSCULAR HEMOGLOBIN 32.7 pg (27.0-33.0); MEAN CORPUSCULAR HGB CONC 34.1 g/dl (32.0-36.5); MEAN CORPUSCULAR VOLUME 95.8 fl (80.0-96.0); MONO % 9.5 % (0.0-5.0); NEUTROPHILS # 7.5 10^3/uL (1.5-8.5); NEUTROPHILS % 74.4 % (36.0-66.0); PLATELET COUNT, AUTOMATED 129 10^3/uL (150-450); RED BLOOD COUNT 4.07 10^6/uL (4.30-6.10); WHITE BLOOD COUNT 10.1 10^3/uL (4.0-10.0)
[2019-07-27 06:00] VITALS: BP 123/68
[2019-07-27] MEDS: HEPARIN SOD (PORCINE) 5000 UNITS/ML VIAL SC SCH ×3 (06:00→22:00)
[2019-07-27] MEDS: LEVOTHYROXINE 75MCG TABLET (0.075MG) PO SCH (06:17)
[2019-07-27 06:19] LABS: BLOOD UREA NITROGEN 11 MG/DL (7-18); CALCIUM LEVEL 8.8 MG/DL (8.8-10.2); CARBON DIOXIDE LEVEL 25 MEQ/L (21-32); CHLORIDE LEVEL 105 MEQ/L (98-107); CREATININE FOR GFR 0.98 MG/DL (0.70-1.30); GLOMERULAR FILTRATION RATE > 60.0 (>35); GLUCOSE, FASTING 94 MG/DL (70-100); MAGNESIUM LEVEL 1.9 MG/DL (1.8-2.4); POTASSIUM SERUM 3.3 MEQ/L (3.5-5.1); SODIUM LEVEL 137 MEQ/L (136-145)
[2019-07-27] MEDS: DOCUSATE SODIUM 100 MG CAP PO SCH ×2 (10:18→21:00)
[2019-07-27] MEDS: VITAMIN D 1,000 INTERNATIONAL UNITS TABLET PO SCH (10:18)
[2019-07-27] MEDS: PANTOPRAZOLE 40MG TAB (PROTONIX) PO SCH ×2 (10:18→21:00)
[2019-07-27] MEDS: ASPIRIN 81 MG ENTERIC TAB PO SCH (10:18)
[2019-07-27] MEDS: SUCRALFATE 1 GM TAB PO SCH ×4 (10:19→21:00)
[2019-07-27] MEDS: FOLIC ACID 1 MG TAB PO SCH (10:19)
--- NOTE | 2019-07-27 11:10 | IPNPDOC ---
Text Note Date of Service The patient was seen on 07/27/19. NOTE She was seen and examined today with the niece in the room. Seems very quiet. He has not been letting them to put an IV line. No overnight events PHYSICAL EXAMINATION: VITAL SIGNS: Temperature 97.8, pulse 73, respiratory rate 18, blood pressure 126/64, 96% on 3 liters nasal cannula. GENERAL: Awake, alert, oriented to himself only. HEART: S1, S2. Sinus rhythm. LUNGS: Right lower lobe crackles. ABDOMEN: Soft, nontender, nondistended. EXTREMITIES: No pitting edema. Two sets of blood cultures negative. ASSESSMENT AND PLAN: This is an 88-year-old with chronic dementia, lives at [facility], brought to the hospital with confusion and found to have right lower lo be infiltarte, pneumonitis versus pneumonia, currently being treated for the follwoin. Right lower lobe pneumonia. Doing well with decreasing white count, afebrile. No complaints of chills. On doxycycline and ceftriaxone. We'll try to switch him to Augmentin 875 twice a day 2. Dementia. On home dose of Seroquel. Fall precautions. 3. Reflux. On Protonix. 4. Hypothyroidism. On Synthroid. 5. Hypertension, controlled. 6. Hypoxia due to pneumonia, resolved. 7. Electrolyte abnormalities. Low potassium and low magnesium supplemented. Disposition. Unknown at this time as the patient probably might not be able to go back to assisted living and would require more supervision. 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
[2019-07-27 14:00] VITALS: BP 145/85
[2019-07-27] MEDS: SENNA 8.6 MG TAB (SENOKOT) PO SCH (21:00)
[2019-07-27] MEDS: AUGMENTIN 875 MG TAB PO SCH (21:00)
[2019-07-27] MEDS: QUEtiapine FUMARATE 50 MG TAB PO SCH (21:00)
[2019-07-27] MEDS: FAMOTIDINE 20 MG TAB PO SCH (21:00)
[2019-07-27 21:14] VITALS: BP 115/60
[2019-07-28] MEDS: LEVOTHYROXINE 75MCG TABLET (0.075MG) PO SCH (05:49)
[2019-07-28] MEDS: HEPARIN SOD (PORCINE) 5000 UNITS/ML VIAL SC SCH ×3 (05:49→21:17)
[2019-07-28 06:01] VITALS: BP 127/81
[2019-07-28 06:21] LABS: BASO # 0.1 10^3/uL (0.0-0.2); BASO % 0.6 % (0.0-1.0); EOS # 0.7 10^3/uL (0.0-0.5); EOS % 8.2 % (0.0-3.0); HEMOGLOBIN 12.8 g/dl (13.5-17.5); LYMPH # 1.1 10^3/uL (1.5-5.0); LYMPH % 12.5 % (24.0-44.0); MEAN CORPUSCULAR HEMOGLOBIN 32.8 pg (27.0-33.0); MEAN CORPUSCULAR HGB CONC 34.6 g/dl (32.0-36.5); MEAN CORPUSCULAR VOLUME 94.9 fl (80.0-96.0); MONO # 1.1 10^3/uL (0.0-0.8); MONO % 13.3 % (0.0-5.0); NEUTROPHILS # 5.5 10^3/uL (1.5-8.5); NEUTROPHILS % 64.7 % (36.0-66.0); PLATELET COUNT, AUTOMATED 148 10^3/uL (150-450); WHITE BLOOD COUNT 8.5 10^3/uL (4.0-10.0)
[2019-07-28 06:39] LABS: BLOOD UREA NITROGEN 13 MG/DL (7-18); CALCIUM LEVEL 8.8 MG/DL (8.8-10.2); CARBON DIOXIDE LEVEL 25 MEQ/L (21-32); CHLORIDE LEVEL 105 MEQ/L (98-107); CREATININE FOR GFR 0.93 MG/DL (0.70-1.30); GLOMERULAR FILTRATION RATE > 60.0 (>35); GLUCOSE, FASTING 92 MG/DL (70-100); MAGNESIUM LEVEL 1.9 MG/DL (1.8-2.4); POTASSIUM SERUM 3.4 MEQ/L (3.5-5.1); SODIUM LEVEL 138 MEQ/L (136-145)
[2019-07-28] MEDS ORDERED: POTASSIUM CHLORIDE 10 MEQ SR TABLET PO ONE (08:45)
[2019-07-28] MEDS: AUGMENTIN 875 MG TAB PO SCH ×2 (09:27→21:17)
[2019-07-28] MEDS: SUCRALFATE 1 GM TAB PO SCH ×4 (09:27→21:18)
[2019-07-28] MEDS: VITAMIN D 1,000 INTERNATIONAL UNITS TABLET PO SCH (09:27)
[2019-07-28] MEDS: FOLIC ACID 1 MG TAB PO SCH (09:27)
[2019-07-28] MEDS: ASPIRIN 81 MG ENTERIC TAB PO SCH (09:27)
[2019-07-28] MEDS: PANTOPRAZOLE 40MG TAB (PROTONIX) PO SCH ×2 (09:27→21:18)
[2019-07-28] MEDS: DOCUSATE SODIUM 100 MG CAP PO SCH ×2 (09:28→21:18)
--- NOTE | 2019-07-28 10:52 | IPNPDOC ---
Text Note Date of Service The patient was seen on 07/28/19. NOTE She was seen and examined today with the niece in the room. Seems very quiet. He has not been letting them to put an IV line. No overnight events PHYSICAL EXAMINATION: GENERAL: Awake, alert, oriented to himself only. HEART: S1, S2. Sinus rhythm. LUNGS: Right lower lobe crackles. ABDOMEN: Soft, nontender, nondistended. EXTREMITIES: No pitting edema. Neuro. Moving all the extremities spontaneously but not following commands Two sets of blood cultures negative. ASSESSMENT AND PLAN: This is an 88-year-old with chronic dementia, lives at [facility], brought to the hospital with confusion and found to have right lower lobe infiltarte, pneumonitis versus pneumonia, currently being treated for the follwoin. Right lower lobe pneumonia. Doing well with decreasing white count, afebrile. No complaints of chills. was on doxycycline and ceftriaxone. switched him to Augmentin 875 twice a day 2. Dementia. On home dose of Seroquel. Fall precautions. 3. Reflux. On Protonix. 4. Hypothyroidism. On Synthroid. 5. Hypertension, controlled. 6. Hypoxia due to pneumonia, resolved. 7. Electrolyte abnormalities. Low potassium and low magnesium supplemented. Disposition. Unknown at this time as the patient probably might not be able to go back to assisted living and would require more supervision. 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
[2019-07-28 15:38] VITALS: BP 129/81
[2019-07-28] MEDS: FAMOTIDINE 20 MG TAB PO SCH (21:17)
[2019-07-28] MEDS: SENNA 8.6 MG TAB (SENOKOT) PO SCH (21:18)
[2019-07-28] MEDS: QUEtiapine FUMARATE 50 MG TAB PO SCH (21:18)
[2019-07-28 22:00] VITALS: BP 129/80
[2019-07-29] MEDS: HEPARIN SOD (PORCINE) 5000 UNITS/ML VIAL SC SCH ×4 (05:42→20:59)
[2019-07-29] MEDS: LEVOTHYROXINE 75MCG TABLET (0.075MG) PO SCH (05:42)
[2019-07-29 06:15] VITALS: BP 116/56
[2019-07-29] MEDS ORDERED: POTASSIUM CHLORIDE 10 MEQ SR TABLET PO ONE (09:00)
[2019-07-29] MEDS: AUGMENTIN 875 MG TAB PO SCH ×2 (09:13→20:50)
[2019-07-29] MEDS: ASPIRIN 81 MG ENTERIC TAB PO SCH (09:18)
[2019-07-29] MEDS: SUCRALFATE 1 GM TAB PO SCH ×4 (09:18→20:50)
[2019-07-29] MEDS: VITAMIN D 1,000 INTERNATIONAL UNITS TABLET PO SCH (09:18)
[2019-07-29] MEDS: DOCUSATE SODIUM 100 MG CAP PO SCH ×2 (09:18→20:50)
[2019-07-29] MEDS: FOLIC ACID 1 MG TAB PO SCH (09:18)
[2019-07-29] MEDS: PANTOPRAZOLE 40MG TAB (PROTONIX) PO SCH ×2 (09:18→20:50)
[2019-07-29 10:21] LABS: BASO % 0.6 % (0.0-1.0); EOS # 0.8 10^3/uL (0.0-0.5); EOS % 12.7 % (0.0-3.0); HEMATOCRIT 40.1 % (42.0-52.0); HEMOGLOBIN 13.7 g/dl (13.5-17.5); LYMPH # 1.2 10^3/uL (1.5-5.0); LYMPH % 18.3 % (24.0-44.0); MEAN CORPUSCULAR HEMOGLOBIN 33.5 pg (27.0-33.0); MEAN CORPUSCULAR HGB CONC 34.2 g/dl (32.0-36.5); MONO # 0.9 10^3/uL (0.0-0.8); MONO % 13.5 % (0.0-5.0); NEUTROPHILS # 3.5 10^3/uL (1.5-8.5); NEUTROPHILS % 53.4 % (36.0-66.0); PLATELET COUNT, AUTOMATED 148 10^3/uL (150-450); RED BLOOD COUNT 4.09 10^6/uL (4.30-6.10); WHITE BLOOD COUNT 6.6 10^3/uL (4.0-10.0)
[2019-07-29 10:49] LABS: BLOOD UREA NITROGEN 12 MG/DL (7-18); CALCIUM LEVEL 9.1 MG/DL (8.8-10.2); CARBON DIOXIDE LEVEL 28 MEQ/L (21-32); CHLORIDE LEVEL 108 MEQ/L (98-107); CREATININE FOR GFR 0.93 MG/DL (0.70-1.30); GLOMERULAR FILTRATION RATE > 60.0 (>35); GLUCOSE, FASTING 96 MG/DL (70-100); MAGNESIUM LEVEL 2.1 MG/DL (1.8-2.4); POTASSIUM SERUM 4.5 MEQ/L (3.5-5.1); SODIUM LEVEL 142 MEQ/L (136-145)
[2019-07-29] MEDS ORDERED: AMOX875T2 PO (11:41)
[2019-07-29] MEDS ORDERED: NORV5TAB PO (11:41)
--- NOTE | 2019-07-29 11:42 | DS.PDOC ---
Discharge Summary General Date of Admission Jul 25, 2019 at 03:51 Date of Discharge 07/29/19 Discharge Summary CHIEF COMPLAINT: Increased confusion with decrease in daily activity Final diagnosis Committee acquired pneumonia Confusion HISTORY OF PRESENT ILLNESS: Connor is an 88-year-old male with pertinent past medical history of dementia, recurrent pneumonia, hypertension, hypothyroidism, and GERD, who presented to the emergency department late in the evening on 07/24 from his [facility] assisted living facility with chief complaints - - provided by patient's living facility staff - - of a recent increase in confusion with a decrease in daily activity. Due to patient's baseline dementia, and with no outside sales account representative from patient's living facility present at time of hospitalist h istory and physical exam, an accurate HPI was not able to be obtained. Two-view chest x-ray showed right lower lobe infiltrate and chest CT with contrast showed atelectasis versus pneumonitis predominantly involving the right lower lobe. Patient was given a single dose of 2 g of ceftriaxone, as well as supplemental oxygen in the form of 1 L nasal cannula. He was initially kept on doxycycline and Rocephin, but he did not let any IV medications because he kept developing off his IV lines and for that reason, he was switched to Augmentin 875 twice a day. The patient received Augmentin 825 twice a day for the last 3 days and will require 3 more days of that. The patient is medically optimized. All other metabolic and neurological causes have been ruled out and he was seen by case management consult is recommended that the patient cannot go back to the assisted facility and will require long-term facility and for that reason, the patient will be discharged there. The patient will be discharged on all the home medication except for thiazide and that is switched to 5 mg of Norvasc. Being a dmitted to the hydrocortisone as it is not the best medication for his hypertension. The patient is clinically optimized and will be discharged home. The patient also did not have any signs and symptoms of aspiration and that the patient should be continued to be on aspiration precautions. PHYSICAL EXAMINATION: GENERAL: Awake, alert, oriented to himself only. HEART: S1, S2. Sinus rhythm. LUNGS: Right lower lobe crackles. ABDOMEN: Soft, nontender, nondistended. EXTREMITIES: No pitting edema. Neuro. Moving all the extremities spontaneously but not following commands Dictations. As per discharge reconciliation medication list Activity as tolerated Diet. 2 g sodium diet Follow-up appointments. PCP in 1 week Condition on discharge. Patient is medically optimized for discharge Discharge disposition: Long-term facility Total time spent on this discharge including coordination of care, review of chart documentation and actual contact is around 35 minutes The patient has MOEST form stating that he has DNR/DNI Vital Signs/I&Os Vital Signs Date Time Temp Pulse Resp B/P (MAP) Pulse Ox O2 Delivery O2 Flow Rate FiO2 07/29/19 09:00 1.0 07/29/19 06:15 97.0 82 18 116/56 (76) 92 Nasal Cannula I&O- Last 24 Hours up to 6 AM 07/29/19 06:00 Intake Total 1050 ml Output Total 575 ml Balance 475 ml Laboratory Data Labs 24H Laboratory Tests 2 07/29/19 10:08: Immature Granulocyte % (Auto) 1.5, Neutrophils (%) (Auto) 53.4, Lymphocytes (%) (Auto) 18.3L, Monocytes (%) (Auto) 13.5H, Eosinophils (%) (Auto) 12.7H, Basophils (%) (Auto) 0.6, Neutrophils # (Auto) 3.5, Lymphocytes # (Auto) 1.2L, Monocytes # (Auto) 0.9H, Eosinophils # (Auto) 0.8H, Basophils # (Auto) 0.0, Nucleated Red Blood Cells % (auto) 0.0, Anion Gap 6L, Glomerular Filtration Rate > 60.0, Calcium Level 9.1, Magnesium Level 2.1 CBC/BMP Laboratory Tests 07/29/19 10:08 Microbiology Microbiology 07/25/19 Blood Culture - Preliminary, Resulted No Growth after 72 hours. All specime... 07/25/19 Blood Culture - Preliminary, Resulted No Growth after 72 hours. All specime... Discharge Medications Scheduled Amlodipine Besylate (Norvasc) 5 Mg Tablet, 5 MG PO DAILY Amoxicillin/Potassium Clav (Amox-Clav 875-125 mg Tablet) 1 Each Tablet, 875 MG PO BID Aspirin (Aspirin EC) 81 Mg Tab, 81 MG PO DAILY, (Reported) Cholecalciferol (Vitamin D3) (Vitamin D3) 2,000 Unit Cap, 2,000 UNIT PO DAILY, (Reported) 1100 Docusate Sodium (Colace) 100 Mg Cap, 100 MG PO BID, (Reported) Famotidine (Famotidine) 40 Mg Tab, 40 MG PO QHS, (Reported) Folic Acid (Folic Acid) 1 Mg Tab, 1 MG PO DAILY, (Reported) Levothyroxine Sodium (Levoxyl) 75 Mcg Tab, 75 MCG PO DAILY, (Reported) Pantoprazole Sodium (Protonix) 40 Mg Tab, 40 MG PO BID, (Reported) TAKES AT 1100 & 1600 Potassium Chloride (Klor-Con M10) 10 Meq Tabcr, 10 MEQ PO DAILY, (Reported) Quetiapine Fumarate (Quetiapine Fumarate) 50 Mg Tablet, 50 MG PO QHS, (Reported) Sennosides (Senna) 8.6 Mg Tablet, 17.2 MG PO QHS for constipation, (Reported) Sucralfate (Sucralfate) 1 Gm Tab, 1 GM PO QID, (Reported) Scheduled PRN Acetaminophen (Acetaminophen) 325 Mg Tablet, 325 MG PO DAILY PRN for PAIN, (Reported) Bismuth Subsalicylate (Kaopectate) 262 Mg/15 Ml Oral.susp, 30 ML PO Q4H PRN for DYSPEPSIA, (Reported) Dextromethorphan Polistirex (Robitussin ER) 30 Mg/5 Ml Rosa.er.12h, 5 ML PO QID PRN for COUGH, (Reported) Guaifenesin/Dextromethorphan (Guaifenesin Dm Syrup) 237 Ml Syrup, 5 ML PO QID PRN for COUGH, (Reported) Mag Hydrox/Aluminum Hyd/Simeth (Magnesium-Aluminum Suspension) 1 Rosa Rosa, 30 ML PO Q4H PRN for INDIGESTION, (Reported) Magnesium Hydroxide (Milk of Magnesia) 400 Mg/5 Ml Oral.susp, 30 ML PO Q4H PRN for CONSTIPATION, (Reported) Ondansetron HCl (Ondansetron HCl) 4 Mg Tablet, 4 MG PO Q6H PRN for NAUSEA, (Reported) Polyethylene Glycol 3350 (Miralax) 119 Gm Powder, 17 GM PO DAILY PRN for CONSTIPATION, (Reported) dilute in 8 ounces of water or juice Simethicone (Simethicone) 80 Mg Chew, 80 MG PO Q6H PRN for GAS PAIN, (Reported) Allergies Coded Allergies: No Known Allergies (Unverified , 11/13/17) AUTUMN CAZARES MD Jul 29, 2019 11:42
[2019-07-29 12:16] VITALS: O2SAT 94
[2019-07-29 14:51] VITALS: BP 122/71
[2019-07-29] MEDS: FAMOTIDINE 20 MG TAB PO SCH (20:50)
[2019-07-29] MEDS: QUEtiapine FUMARATE 50 MG TAB PO SCH (20:50)
[2019-07-29] MEDS: SENNA 8.6 MG TAB (SENOKOT) PO SCH (20:50)
[2019-07-29 20:52] VITALS: BP 145/83
[2019-07-30 00:15] LABS: BODY FLUID CULTURE Not Indicated (.); LEGIONELLA ANTIGEN URINE Negative (Negative); ORGANISM ID Not indicated. (.); SPECIMEN SOURCE Urine (.); URINE STREP PNEUMONIAE ANTIGEN Negative (Negative)
[2019-07-30] MEDS: HEPARIN SOD (PORCINE) 5000 UNITS/ML VIAL SC SCH (06:00)
[2019-07-30] MEDS: LEVOTHYROXINE 75MCG TABLET (0.075MG) PO SCH (06:00)
[2019-07-30 06:10] VITALS: BP 133/67
[2019-07-30 08:08] LABS: BASO # 0.1 10^3/uL (0.0-0.2); BASO % 0.9 % (0.0-1.0); EOS # 0.8 10^3/uL (0.0-0.5); EOS % 12.3 % (0.0-3.0); HEMATOCRIT 43.1 % (42.0-52.0); HEMOGLOBIN 14.6 g/dl (13.5-17.5); LYMPH # 1.2 10^3/uL (1.5-5.0); MEAN CORPUSCULAR HEMOGLOBIN 33.2 pg (27.0-33.0); MEAN CORPUSCULAR HGB CONC 33.9 g/dl (32.0-36.5); MONO # 0.8 10^3/uL (0.0-0.8); MONO % 13.3 % (0.0-5.0); NEUTROPHILS # 3.4 10^3/uL (1.5-8.5); NEUTROPHILS % 52.9 % (36.0-66.0); PLATELET COUNT, AUTOMATED 161 10^3/uL (150-450); WHITE BLOOD COUNT 6.3 10^3/uL (4.0-10.0)
[2019-07-30 08:45] LABS: BLOOD UREA NITROGEN 12 MG/DL (7-18); CALCIUM LEVEL 9.3 MG/DL (8.8-10.2); CARBON DIOXIDE LEVEL 24 MEQ/L (21-32); CHLORIDE LEVEL 110 MEQ/L (98-107); CREATININE FOR GFR 1.01 MG/DL (0.70-1.30); GLOMERULAR FILTRATION RATE > 60.0 (>35); GLUCOSE, FASTING 89 MG/DL (70-100); POTASSIUM SERUM 5.5 MEQ/L (3.5-5.1); SODIUM LEVEL 139 MEQ/L (136-145)
[2019-07-30] MEDS: AUGMENTIN 875 MG TAB PO SCH (10:08)
[2019-07-30] MEDS: VITAMIN D 1,000 INTERNATIONAL UNITS TABLET PO SCH (10:08)
[2019-07-30] MEDS: SUCRALFATE 1 GM TAB PO SCH (10:08)
[2019-07-30] MEDS: PANTOPRAZOLE 40MG TAB (PROTONIX) PO SCH (10:08)
[2019-07-30] MEDS: DOCUSATE SODIUM 100 MG CAP PO SCH (10:08)
[2019-07-30] MEDS: FOLIC ACID 1 MG TAB PO SCH (10:08)
[2019-07-30] MEDS: ASPIRIN 81 MG ENTERIC TAB PO SCH (10:08)
--- NOTE | 2019-07-30 11:39 | DS.PDOC ---
Discharge Summary General Date of Admission Jul 25, 2019 at 03:51 Date of Discharge 07/30/19 Discharge Summary CHIEF COMPLAINT: Increased confusion with decrease in daily activity Final diagnosis Committee acquired pneumonia Confusion HISTORY OF PRESENT ILLNESS: Connor is an 88-year-old male with pertinent past medical history of dementia, recurrent pneumonia, hypertension, hypothyroidism, and GERD, who presented to the emergency department late in the evening on 07/24 from his [facility] assisted living facility with chief complaints - - provided by patient's living facility staff - - of a recent increase in confusion with a decrease in daily activity. Due to patient's baseline dementia, and with no computer help desk representative from patient's living facility present at time of hospitalist h istory and physical exam, an accurate HPI was not able to be obtained. Two-view chest x-ray showed right lower lobe infiltrate and chest CT with contrast showed atelectasis versus pneumonitis predominantly involving the right lower lobe. Patient was given a single dose of 2 g of ceftriaxone, as well as supplemental oxygen in the form of 1 L nasal cannula. He was initially kept on doxycycline and Rocephin, but he did not let any IV medications because he kept developing off his IV lines and for that reason, he was switched to Augmentin 875 twice a day. The patient received Augmentin 825 twice a day for the last 3 days and will require 3 more days of that. The patient is medically optimized. All other metabolic and neurological causes have been ruled out and he was seen by case management consult is recommended that the patient cannot go back to the assisted facility and will require long-term facility and for that reason, the patient will be discharged there. The patient will be discharged on all the home medication except for thiazide and that is switched to 5 mg of Norvasc. Being a dmitted to the hydrocortisone as it is not the best medication for his hypertension. The patient is clinically optimized and will be discharged home. The patient also did not have any signs and symptoms of aspiration and that the patient should be continued to be on aspiration precautions. PHYSICAL EXAMINATION: GENERAL: Awake, alert, oriented to himself only. HEART: S1, S2. Sinus rhythm. LUNGS: Right lower lobe crackles. ABDOMEN: Soft, nontender, nondistended. EXTREMITIES: No pitting edema. Neuro. Moving all the extremities spontaneously but not following commands Dictations. As per discharge reconciliation medication list Activity as tolerated Diet. 2 g sodium diet Follow-up appointments. PCP in 1 week Condition on discharge. Patient is medically optimized for discharge Discharge disposition: Long-term facility Total time spent on this discharge including coordination of care, review of chart documentation and actual contact is around 35 minutes The patient has MOEST form stating that he has DNR/DNI Vital Signs/I&Os Vital Signs Date Time Temp Pulse Resp B/P (MAP) Pulse Ox O2 Delivery O2 Flow Rate FiO2 07/30/19 09:00 1.0 07/30/19 06:10 97.0 62 18 133/67 (89) 91 Room Air I&O- Last 24 Hours up to 6 AM 07/30/19 06:00 Intake Total 420 ml Output Total 450 ml Balance -30 ml Laboratory Data Labs 24H Laboratory Tests 2 07/30/19 07:46: Immature Granulocyte % (Auto) 1.6, Neutrophils (%) (Auto) 52.9, Lymphocytes (%) (Auto) 19.0L, Monocytes (%) (Auto) 13.3H, Eosinophils (%) (Auto) 12.3H, Basophils (%) (Auto) 0.9, Neutrophils # (Auto) 3.4, Lymphocytes # (Auto) 1.2L, Monocytes # (Auto) 0.8, Eosinophils # (Auto) 0.8H, Basophils # (Auto) 0.1, Nucleated Red Blood Cells % (auto) 0.0, Anion Gap 5L, Glomerular Filtration Rate > 60.0, Calcium Level 9.3, Magnesium Level 2.0 CBC/BMP Laboratory Tests 07/30/19 07:46 Microbiology Microbiology 07/25/19 Blood Culture - Final, Complete NO GROWTH AFTER 5 DAYS 07/25/19 Blood Culture - Final, Complete NO GROWTH AFTER 5 DAYS Discharge Medications Scheduled Amlodipine Besylate (Norvasc) 5 Mg Tablet, 5 MG PO DAILY Amoxicillin/Potassium Clav (Amox-Clav 875-125 mg Tablet) 1 Each Tablet, 875 MG PO BID Aspirin (Aspirin EC) 81 Mg Tab, 81 MG PO DAILY, (Reported) Cholecalciferol (Vitamin D3) (Vitamin D3) 2,000 Unit Cap, 2,000 UNIT PO DAILY, (Reported) 1100 Docusate Sodium (Colace) 100 Mg Cap, 100 MG PO BID, (Reported) Famotidine (Famotidine) 40 Mg Tab, 40 MG PO QHS, (Reported) Folic Acid (Folic Acid) 1 Mg Tab, 1 MG PO DAILY, (Reported) Levothyroxine Sodium (Levoxyl) 75 Mcg Tab, 75 MCG PO DAILY, (Reported) Pantoprazole Sodium (Protonix) 40 Mg Tab, 40 MG PO BID, (Reported) TAKES AT 1100 & 1600 Potassium Chloride (Klor-Con M10) 10 Meq Tabcr, 10 MEQ PO DAILY, (Reported) Quetiapine Fumarate (Quetiapine Fumarate) 50 Mg Tablet, 50 MG PO QHS, (Reported) Sennosides (Senna) 8.6 Mg Tablet, 17.2 MG PO QHS for constipation, (Reported) Sucralfate (Sucralfate) 1 Gm Tab, 1 GM PO QID, (Reported) Scheduled PRN Acetaminophen (Acetaminophen) 325 Mg Tablet, 325 MG PO DAILY PRN for PAIN, (Reported) Bismuth Subsalicylate (Kaopectate) 262 Mg/15 Ml Oral.susp, 30 ML PO Q4H PRN for DYSPEPSIA, (Reported) Dextromethorphan Polistirex (Robitussin ER) 30 Mg/5 Ml Rosa.er.12h, 5 ML PO QID P RN for COUGH, (Reported) Guaifenesin/Dextromethorphan (Guaifenesin Dm Syrup) 237 Ml Syrup, 5 ML PO QID PRN for COUGH, (Reported) Mag Hydrox/Aluminum Hyd/Simeth (Magnesium-Aluminum Suspension) 1 Rosa Rosa, 30 ML PO Q4H PRN for INDIGESTION, (Reported) Magnesium Hydroxide (Milk of Magnesia) 400 Mg/5 Ml Oral.susp, 30 ML PO Q4H PRN for CONSTIPATION, (Reported) Ondansetron HCl (Ondansetron HCl) 4 Mg Tablet, 4 MG PO Q6H PRN for NAUSEA, (Reported) Polyethylene Glycol 3350 (Miralax) 119 Gm Powder, 17 GM PO DAILY PRN for CONSTIPATION, (Reported) dilute in 8 ounces of water or juice Simethicone (Simethicone) 80 Mg Chew, 80 MG PO Q6H PRN for GAS PAIN, (Reported) Allergies Coded Allergies: No Known Allergies (Unverified , 11/13/17) AUTUMN CAZARES MD Jul 30, 2019 11:39
== END 2019-07-30 12:00 | disposition home or self-care (01) | DRG 194 ==
LOC: M ED 20:35 → M ED INP 07-25 03:51 → M MS5PR 07-25 15:25
PROVIDERS: ADMIT Internal Medicine; ATTEND Internal Medicine
DX: J18.9 Pneumonia, unspecified organism (principal); J98.11 Atelectasis; E87.2 Acidosis; F03.91 Unspecified dementia, unspecified severity, with behavioral disturbance; I10 Essential (primary) hypertension; E03.9 Hypothyroidism, unspecified; R09.02 Hypoxemia; K21.9 Gastro-esophageal reflux disease without esophagitis; E83.51 Hypocalcemia; E87.6 Hypokalemia; Z66 Do not resuscitate; K59.00 Constipation, unspecified; R13.10 Dysphagia, unspecified; E53.8 Deficiency of other specified B group vitamins; E78.5 Hyperlipidemia, unspecified; M19.90 Unspecified osteoarthritis, unspecified site; E55.9 Vitamin D deficiency, unspecified; Z79.82 Long term (current) use of aspirin; Z79.899 Other long term (current) drug therapy

== ENCOUNTER → 2019-07-31 | Outpatient (REF) | payer MEDICARE, MEDICAID ==
[~2019-07-31] MED LIST changes: +ACET1TAB55 PO; +AMOX875T2 PO; +DEXT30SU29 PO; +GUAI1SYP8 PO; +KAOP262S PO; +MILKSUS3 PO; +MIRA3350 PO; +NORV5TAB PO; +ONDA-195 PO; +QUET5TAB PO; +SENN8.6T58 PO
[2019-07-31 11:33] LABS: BLOOD UREA NITROGEN 11 MG/DL (7-18); CALCIUM LEVEL 9.5 MG/DL (8.8-10.2); CARBON DIOXIDE LEVEL 26 MEQ/L (21-32); CHLORIDE LEVEL 108 MEQ/L (98-107); CREATININE FOR GFR 1.17 MG/DL (0.70-1.30); GLOMERULAR FILTRATION RATE > 60.0 (>35); GLUCOSE, FASTING 138 MG/DL (70-100); POTASSIUM SERUM 4.1 MEQ/L (3.5-5.1); SODIUM LEVEL 140 MEQ/L (136-145)
== END ==
LOC: SKLAB4 10:05
PROVIDERS: ATTEND Internal Medicine
DX: E03.9 Hypothyroidism, unspecified (principal); F03.90 Unspecified dementia, unspecified severity, without behavioral disturbance, psychotic disturbance, mood disturbance, and anxiety; I10 Essential (primary) hypertension; Z79.899 Other long term (current) drug therapy

== ENCOUNTER → 2019-09-01 | Outpatient (CLI) | payer MEDICARE, MEDICAID ==
--- NOTE | 2019-09-01 11:40 | REPPI ---
Clinical: Pneumonia . Comparison: 07/24/2019 . Technique: PA and lateral. Findings: The mediastinum and cardiac silhouette are normal. The lung wheat demonstrate chronic interstitial changes without acute consolidation, effusion, or pneumothorax. Previous right lower lobe pneumonia has resolved. The skeletal structures are intact and normal. Impression: 1. No acute cardiopulmonary process. 2. Diffuse chronic interstitial changes. Previous right lower lobe pneumonia resolved. Electronically Signed by Fabian Bradshaw MD 09/01/2019 11:32 A
== END ==
LOC: M PLAIMG 10:29
PROVIDERS: ATTEND Internal Medicine
DX: J18.9 Pneumonia, unspecified organism (principal)

== ENCOUNTER → 2020-02-17 | Outpatient (REF) | payer MEDICARE, MEDICAID ==
[2020-02-17 10:13] LABS: HEMATOCRIT 42.7 % (42.0-52.0); HEMOGLOBIN 14.9 g/dl (13.5-17.5); MEAN CORPUSCULAR HGB CONC 34.9 g/dl (32.0-36.5); MEAN CORPUSCULAR VOLUME 94.5 fl (80.0-96.0); PLATELET COUNT, AUTOMATED 177 10^3/uL (150-450); RED BLOOD COUNT 4.52 10^6/uL (4.30-6.10); WHITE BLOOD COUNT 6.3 10^3/uL (4.0-10.0)
[2020-02-17 10:59] LABS: ALBUMIN 3.5 GM/DL (3.2-5.2); ALT/SGPT 15 U/L (12-78); BILIRUBIN,TOTAL 0.6 MG/DL (0.2-1.0); BLOOD UREA NITROGEN 18 MG/DL (7-18); CALCIUM LEVEL 9.2 MG/DL (8.8-10.2); CARBON DIOXIDE LEVEL 28 MEQ/L (21-32); CHLORIDE LEVEL 106 MEQ/L (98-107); CREATININE FOR GFR 1.21 MG/DL (0.70-1.30); GLOMERULAR FILTRATION RATE > 60.0 (>35); GLUCOSE, FASTING 99 MG/DL (70-100); POTASSIUM SERUM 3.1 MEQ/L (3.5-5.1); SODIUM LEVEL 141 MEQ/L (136-145); TOTAL PROTEIN 7.2 GM/DL (6.4-8.2)
== END ==
PROVIDERS: ATTEND Internal Medicine
DX: E03.9 Hypothyroidism, unspecified (principal); I10 Essential (primary) hypertension

== ENCOUNTER → 2020-06-27 | Outpatient (REF) | payer MEDICARE, MEDICAID | LOC: CANPREREF | PROVIDERS: ATTEND Internal Medicine | DX: Z53.9 Procedure and treatment not carried out, unspecified reason (principal) ==

== ENCOUNTER → 2020-07-02 | Outpatient (REF) ==
[2020-07-02 17:14] LABS: APPEARANCE, URINE CLEAR (CLEAR); BACTERIA, URINE AUTO NEGATIVE (NEGATIVE); BILIRUBIN, URINE AUTO NEGATIVE (NEGATIVE); BLOOD, URINE BLOOD NEGATIVE (NEGATIVE); COLOR, URINE YELLOW (YELLOW); GLUCOSE, URINE (UA) AUTO NEGATIVE (NEGATIVE); KETONE, URINE AUTO NEGATIVE (NEGATIVE); LEUKOCYTE ESTERASE, URINE AUTO NEGATIVE (NEGATIVE); NITRITE, URINE AUTO NEGATIVE (NEGATIVE); PROTEIN, URINE AUTO NEGATIVE (NEGATIVE); RBC, URINE AUTO 0 /HPF (0-3); SPECIFIC GRAVITY URINE AUTO 1.012 (1.002-1.035); SQUAMOUS EPITHELIAL CELL UR AU 0 /HPF (0-6); UROBILINOGEN, URINE AUTO 0.2 mg/dL (0.0-2.0); WBC, URINE AUTO 0 /HPF (0-3)
== END ==
LOC: M LAB 16:33
PROVIDERS: ATTEND Internal Medicine
DX: R35.0 Frequency of micturition (principal); R41.82 Altered mental status, unspecified